=== PATIENT | female | born 1945 | race Caucasian/White ===

== ENCOUNTER 2018-09-26 16:09 | Inpatient (IN) ==
[2018-09-26] MEDS ORDERED: DUONEB (A & A) INH ONE (16:46)
--- NOTE | 2018-09-26 17:21 | PROVIDER DOCUMENTATION ---
HPI-Respiratory General - General Chief Complaint: Shortness of Breath Stated Complaint: DR ETIENNE REF Time Seen by Provider: 09/26/18 16:36 Allergies/Adverse Reactions: Patient Allergies Allergy/AdvReac Type Severity Reaction Status Date / Time aspirin AdvReac Mild ABDOMINAL Verified 12/06/14 09:29 PAIN Home Medications: Home Medication List Medication Instructions Recorded Confirmed Last Taken Type Alprazolam [Xanax] 1 mg PO BID 08/23/13 02/24/16 08/22/13 07:00 History Citalopram [Celexa] 20 mg PO DAILY 08/23/13 02/27/16 08/22/13 07:00 History Esomeprazole [Nexium] 40 mg PO DAILY 08/23/13 02/27/16 08/22/13 07:00 History Ezetimibe [Zetia] 10 mg PO DAILY 08/23/13 02/27/16 08/22/13 07:00 History Oxycodone/APAP 10 mg/325 mg 1 each PO Q6H 08/23/13 02/27/16 08/23/13 07:00 History [Percocet-10] PRAVAstatin [Pravachol] 20 mg PO QHS 08/23/13 02/27/16 08/21/13 20:00 History Albuterol Sulfate [Albuterol 1 - 2 puff IH 3-4XDAY PRN PRN #1 09/24/13 02/22/16 Unknown Rx Sulfate Hfa] hfa.[email or web address].[email or web address] Aspirin 81 mg PO QHS 09/24/13 02/22/16 Unknown History Furosemide [Lasix] 40 mg PO DAILY #20 tablet 09/24/13 02/22/16 Unknown Rx Hydrochlorothiazide 25 mg PO DAILY 09/24/13 02/22/16 Unknown History Morphine Sulfate [Morphine Sulfate 60 mg PO BID 09/24/13 02/23/16 Unknown History ER] Multivitamin [Multivitamins] 1 each PO DAILY 09/24/13 02/22/16 Unknown History [place]-3 Fatty Acids [Fish Oil] 2,000 mg PO DAILY 09/24/13 02/22/16 Unknown History Doxycycline 100 mg PO BID #10 capsule 02/27/16 Unknown Rx Levofloxacin [Levaquin] 500 mg PO DAILY #7 tablet 02/27/16 Unknown Rx Methylprednisolone [Medrol Dosepak] 4 mg PO DIRECTED #1 package 02/27/16 Unknown Rx - History of Present Illness-Resp Nature of Presenting Problem: 73 y/o female patient with h/o ?emphysema, h/o chronic smoking, presents with c/ o shortness of breath x 2 weeks, getting worse. Severity in ED: reports: severe Onset/Duration: reports: other (2 weeks) Timing: reports: getting worse Cough Quality/Degree: reports: moderate Associated Symptoms: reports: cough, shortness of breath. denies: chest pain/ soreness, fever/chills Similar Symptoms Previously?: Yes Review of Systems - Adult - REVIEW OF SYSTEMS - ADULT Constitutional: reports: no symptoms reported Eyes: reports: no symptoms reported Ears, Nose, Mouth & Throat: reports: no symptoms reported Cardiovascular: reports: no symptoms reported Respiratory: reports: cough, shortness of breath Gastrointestinal: reports: no symptoms reported Genitourinary: reports: no symptoms reported Musculoskeletal: reports: no symptoms reported Integumentary: reports: no symptoms reported Neurological: reports: no symptoms reported Psychiatric: reports: no symptoms reported Endocrine: reports: no symptoms reported Hematologic/Lymphatic: reports: no symptoms reported Allergic/Immunologic: reports: no symptoms reported All Other Systems: Reviewed and Negative Past History - Adult - PAST MEDICAL HISTORY-ADULT Review of Records: reports: Nursing Assessment Review Major Childhood Illnesses: reports: denies history Cardiovascular: reports: HTN, hyperlipidemia Respiratory: reports: COPD, denies history Gastrointestinal: reports: denies history Obstetrical/Gynecological: reports: denies history Genitourinary: reports: denies history Musculoskeletal: reports: chronic pain, intervertebral disc disease Neurological: reports: denies history Endocrine/Immune: reports: denies history Other Conditions: reports: denies history - PRIOR SURGERIES/PROCEDURES Surgical/Procedure History: reports: hysterectomy - PRIOR HOSPITALIZATIONS Prior Hospitalizations: reports: none - IMMUNIZATION STATUS Childhood Immunizations: See Nurse Assessment Flu Vaccine: See Nurse Assessment - FAMILY HISTORY Family History: reviewed, not pertinent - SOCIAL HISTORY Smoking: quit greater than 1 year Physical Exam-General - PHYSICAL EXAM-ADULT Initial Vital Signs Reviewed: Yes - CONSTITUTIONAL General Appearance: moderate distress, obese - EYES Eyes: PERRL/EOMI, pink conjunctivae - HEAD, EARS, NOSE, MOUTH & THROAT HENMT: normocephalic/atraumatic, moist mucous membranes - NECK Neck: full range of motion, supple - RESPIRATORY Respiratory: rhonchi, wheezing, prolonged expiration, increased rate - CARDIOVASCULAR Cardiovascular: normal peripheral pulses - GASTROINTESTINAL (ABDOMEN) Abdominal Exam: normal bowel sounds, non tender, soft - MUSCULOSKELETAL Back Exam: swelling (edema 3+ , non pitting in both lower extremities) - SKIN Integumentary: normal color, normal turgor - NEUROLOGIC Neurologic: grossly normal, no motor/sensory deficits - PSYCHIATRIC Psych/Mental Status: oriented x 3 Progress - PLAN OF CARE/RESULTS Progress/Plan/Lab Results: Vital Signs - 8 hr 09/26/18 16:14 09/26/18 16:38 09/26/18 16:40 Temperature 98.0 F Pulse Rate 80 Respiratory Rate 24 Blood Pressure 136/45 O2 Sat by Pulse Oximetry 76 L 90 L 90 L 09/26/18 16:50 09/26/18 16:58 09/26/18 17:00 Temperature Pulse Rate 97 H Respiratory Rate 24 Blood Pressure O2 Sat by Pulse Oximetry 91 L 92 L 94 L 09/26/18 17:10 09/26/18 17:27 09/26/18 17:30 Temperature Pulse Rate Respiratory Rate Blood Pressure O2 Sat by Pulse Oximetry 90 L 92 L 93 L 09/26/18 17:40 09/26/18 17:50 09/26/18 18:00 Temperature Pulse Rate Respiratory Rate Blood Pressure O2 Sat by Pulse Oximetry 93 L 90 L 91 L 09/26/18 18:10 Temperature Pulse Rate Respiratory Rate Blood Pressure O2 Sat by Pulse Oximetry 93 L 09/26/18 17:45 Influenza Screen - Final Nasopharyngeal Laboratory Results - last 24 hr 09/26/18 09/26/18 09/26/18 17:45 17:45 17:45 WBC 15.89 H RBC 4.16 L Hgb 11.7 L Hct 39.2 MCV 94.2 MCH 28.1 MCHC 29.8 L RDW Std Deviation 16.0 H Plt Count 251 MPV 10.0 Immature Gran % (Auto) 0.6 H Neut % (Auto) 81.5 H Lymph % (Auto) 8.0 L Tripp % (Auto) 9.1 Eos % (Auto) 0.6 Baso % (Auto) 0.2 Immature Gran # (Auto) 0.10 H Neut # (Auto) 12.95 H Lymph # (Auto) 1.27 Tripp # (Auto) 1.45 H Eos # (Auto) 0.09 Baso # (Auto) 0.03 Specimen Type Sample Site pH pCO2 pO2 HCO3 Base Excess Oxyhemoglobin ABG O2 Sat (Calculated) ABG O2 Saturation ABG Carboxyhemoglobin ABG Methemoglobin Earl Test A-a O2 Difference Total Hemoglobin Lactate Liter Flow Blood Gas Modality FiO2 % Sodium 140 Potassium 3.8 Chloride 96 L Carbon Dioxide 33 Anion Gap 11 BUN 12 Creatinine 0.7 Estimated GFR/1.73 m2 > 60 BUN/Creatinine Ratio 17 Glucose 206 H Calculated Osmolality 285 Calcium 8.6 L Total Bilirubin 0.42 AST 42 H ALT 39 H Alkaline Phosphatase 106 H Creatine Kinase 171 Troponin T [id number] Pept Total Protein 6.5 Albumin 3.4 L Globulin 3.1 Albumin/Globulin Ratio 1.1 Plasma Lactate 2.1 09/26/18 09/26/18 09/26/18 17:45 17:45 18:05 WBC RBC Hgb Hct MCV MCH MCHC RDW Std Deviation Plt Count MPV Immature Gran % (Auto) Neut % (Auto) Lymph % (Auto) Tripp % (Auto) Eos % (Auto) Baso % (Auto) Immature Gran # (Auto) Neut # (Auto) Lymph # (Auto) Tripp # (Auto) Eos # (Auto) Baso # (Auto) Specimen Type ARTERIAL Sample Site R RADIAL pH 7.33 L pCO2 68 H* pO2 86 HCO3 30.1 H Base Excess 6.8 H Oxyhemoglobin 94.2 L ABG O2 Sat (Calculated) 22.0 ABG O2 Saturation 97.6 ABG Carboxyhemoglobin 2.30 ABG Methemoglobin 1.3 Earl Test YES A-a O2 Difference 143.0 Total Hemoglobin 16.6 Lactate 2.40 H Liter Flow 6.0 Blood Gas Modality CANNULA FiO2 % 44.0 Sodium Potassium Chloride Carbon Dioxide Anion Gap BUN Creatinine Estimated GFR/1.73 m2 BUN/Creatinine Ratio Glucose Calculated Osmolality Calcium Total Bilirubin AST ALT Alkaline Phosphatase Creatine Kinase Troponin T < 0.010 Fas-[id number] Pept 617 H Total Protein Albumin Globulin Albumin/Globulin Ratio Plasma Lactate Orders Category Date Time Status CHEST-2 VIEWS [RAD] Stat Exams 09/26/18 16:34 Completed ABG [RESP] Routine Lab 09/26/18 18:05 Completed BLOOD CULTURE [BLDCUL] Stat Lab 09/26/18 17:45 Results CBC WITH ELECTRONIC DIFF [HEME] Stat Lab 09/26/18 17:45 Completed CK PROFILE [SP CHEM] Stat Lab 09/26/18 17:45 Completed COMPREHENSIVE METABOLIC PANEL [CHEM] Stat Lab 09/26/18 17:45 Completed INFLUENZA SCREEN A/B Stat Lab 09/26/18 17:45 Completed LACTATE, PLASMA [CHEM] Stat Lab 09/26/18 17:45 Completed PRO B-NATRIURETIC PEPTIDE Stat Lab 09/26/18 17:45 Completed TROPONIN T Stat Lab 09/26/18 17:45 Completed URINALYSIS W/POSS RFLX CULT [URINALYSIS] Stat Lab 09/26/18 16:45 Uncollected Albuterol 2.5MG/Ipratrop 0.5MG [Duoneb (A & A)] Med 09/26/18 16:46 Discontinued 3 ml INH NOW ONE Methylprednisolone Sod Succ [Solu-Medrol] Med 09/26/18 19:03 Discontinued 125 mg IV NOW ONE Piperacillin/Tazobactam [Zosyn] 3.375 gm Med 09/26/18 19:04 Discontinued 0.9% Sodium Chloride Inj [Ns] 50 ml IV NOW Aerosol Treatments Routine Oth 09/26/18 16:46 Completed Aerosol Treatments Stat Oth 09/26/18 16:46 Completed Pulse Oximetry Stat Oth 09/26/18 16:34 Completed EKG [EKG] Stat Ther 09/26/18 16:45 Ordered Result Diagrams: 09/26/18 17:45 09/26/18 17:45 - XRAY 1 XRAY Study: Chest Impression: Abnormal ( EXAM: CHEST-2 VIEWS HISTORY: sob TECHNIQUE: Chest two views COMPARISON: 02/22/2016 FINDINGS: The lungs are hyperexpanded. The heart is mildly enlarged. There are increased interstitial markings throughout both lungs. Trace pleural effusions. IMPRESSION: Increased interstitial markings consistent with fibrosis or pulmonary edema Electronically signed by Mark Melendez 09/26/2018 5:39 PM [id number]/26/[id number] Interpreting Physician: Mark Melendez MD Dictated Date/Time: [id number]) - CONSULTS/PCP/HOSPITALIST Notification #1 *Consult/PCP/Hospitalist*: Dr. Kaminski Time Discussed: 20:49 Consult Disposition: Admit Departure - Departure Date of Disposition Decision: 09/26/18 Time of Disposition Decision: 20:50 DIAGNOSIS: COPD exacerbation Acute respiratory failure Qualifiers: Respiratory failure complication: hypoxia and hypercapnia Qualified Code(s): J96.01 - Acute respiratory failure with hypoxia Disposition: ADMITTED INPATIENT 09 Certified Medical Emergency: Emergent Condition: Serious - Critical Care Note This patient required my direct & personal management of CC.: No Attestation - Physician/ NADIA Attestation The physician spent face to face time with patient:: Yes Advanced Practice Provider documentation review:: Supervising physician onsite and consulted in the evaluation and care of this patient. The physician did have a face to face encounter with the patient.
--- NOTE | 2018-09-26 17:42 | Diag Imaging Result Doc PS360 ---
EXAM: CHEST-2 VIEWS HISTORY: sob TECHNIQUE: Chest two views COMPARISON: 02/22/2016 FINDINGS: The lungs are hyperexpanded. The heart is mildly enlarged. There are increased interstitial markings throughout both lungs. Trace pleural effusions. IMPRESSION: Increased interstitial markings consistent with fibrosis or pulmonary edema Electronically signed by Mark Melendez 09/26/2018 5:39 PM
[2018-09-26 18:11] LABS: BASO# 0.03 X1000 (0.0-0.2); BASO% 0.2 % (0.0-0.8); EOS# 0.09 X1000 (0.0-0.7); EOS% 0.6 % (0.0-10.0); HEMATOCRIT 39.2 % (37.0-47.0); HEMOGLOBIN 11.7 g/dL (12.0-16.0); IMM GRAN% 0.6 % (0.0-0.5); LYMPH# 1.27 X1000 (1.2-3.4); MCH 28.1 PG (27-31); MCHC 29.8 g/dL (33-37); MCV 94.2 FL (81-99); MONO# 1.45 X1000 (0.11-0.59); MONO% 9.1 % (1.7-9.3); NEUT# 12.95 X1000 (1.4-6.5); NEUT% 81.5 % (42.2-75.2); PLT 251 X1000 (130-400); RBC 4.16 XMIL (4.2-5.4); WBC 15.89 X1000 (4.8-10.8)
[2018-09-26 18:11] LABS: ALLEN TEST YES; BE 6.8 mmoll (-3.0-3.0); BLOOD TYPE ARTERIAL; HCO3-(ACT) 30.1 mmoll (20.0-26.0); METHB 1.3 % (0.0-1.5); O2HB 94.2 % (95.0-99.0); PO2(98.6) 86 mmHg (60-100); SAMPLE BLOOD; SAO2 97.6 % (95.0-100.0); THB 16.6 g/dL (11.5-17.4); pH(98.6) 7.33 (7.35-7.45)
[2018-09-26 18:12] LABS: MODALITY CANNULA; PCO2(98.6) 68 mmHg (35-45)
[2018-09-26 18:40] LABS: AGAP 11; ALB/GLOB RATIO 1.1; ALBUMIN 3.4 g/dL (3.5-5.0); ALKALINE PHOSPHATASE 106 U/L (32-104); BUN 12 mg/dL (8-22); CALCIUM 8.6 mg/dL (8.8-10.2); CHLORIDE 96 mmol/L (98-107); CK PROFILE 171 U/L (24-173); COSMO 285; CREATININE 0.7 mg/dL (0.5-0.9); ESTIMATED GFR > 60; GLUCOSE 206 mg/dL (70-104); GOT 42 U/L (10-30); GPT 39 U/L (10-36); POTASSIUM 3.8 mmol/L (3.5-5.1); SODIUM 140 mmol/L (136-145); TCO2 33 mmol/L (25-35); TOTAL BILIRUBIN 0.42 mg/dL (0.20-1.00); TOTAL PROTEIN 6.5 g/dL (6.3-8.3)
[2018-09-26] MEDS ORDERED: SOLU-MEDROL IV ONE (19:03)
[2018-09-26] MEDS ORDERED: ZOSYN 3.375 GM in NS 50 ML IV ONE (19:04)
--- NOTE | 2018-09-27 03:52 | HISTORY AND PHYSICAL ---
PRIMARY CARE PHYSICIAN: Dr. Alexander. CHIEF COMPLAINT: Shortness of breath and cough times several days. HISTORY OF PRESENT ILLNESS: A 73-year-old female with a history of COPD, diabetes mellitus type 2, hypertension, hyperlipidemia and chronic low back pain, who had presented to emergency department with several days history of worsening shortness of breath and cough. The patient states that she was having difficulty breathing and subsequently had come to the emergency department. She was evaluated. She was found to be in some mild distress. She was given nebs treatment and Solu-Medrol and she had some improvement. Due to presenting symptoms, it was thought that she would need admission for further management. At the time of my examination, she had denied any headache, fever, chills, chest pain, hemoptysis, melena, but complained of cough and shortness of breath. PAST MEDICAL HISTORY: Includes COPD, diabetes mellitus type 2, hyperlipidemia, chronic back pain. PAST SURGICAL HISTORY: Hysterectomy. ALLERGIES: Aspirin. CURRENT MEDICATIONS: Include albuterol inhaler 2 puffs q.i.d., Xanax 1 mg p.o. b.i.d., citalopram 20 mg p.o. daily, Nexium 40 mg p.o. daily, Zetia 10 mg p.o. daily, Lasix 40 mg p.o. daily, hydrochlorothiazide 25 mg p.o. daily, methylprednisone as directed, morphine sulfate 60 mg p.o. b.i.d., Percocet 10 one p.o. q.6, pravastatin 20 mg p.o. q.6 hours. SOCIAL HISTORY: She is a former smoker. Admits to social alcohol use. Denies any illicit drug use. FAMILY HISTORY: Positive for coronary artery disease in father. REVIEW OF SYSTEMS: Fourteen point review of systems as listed in HPI. Other systems negative. PHYSICAL EXAMINATION: GENERAL: Cooperative, friendly female. She is resting more comfortably now. VITAL SIGNS: Temperature 98.0 degrees, pulse 80, respirations 24, blood pressure 136/45. HEENT: Atraumatic, normocephalic. Extraocular movements intact. PERRLA. NECK: No masses. CHEST: Rhonchi. CARDIOVASCULAR: Regular rate and rhythm. ABDOMEN: Soft, positive bowel sounds. EXTREMITIES: +1 edema. NEUROLOGIC: She is awake, alert, oriented x3. GENITOURINARY: No bladder distention. SKIN: Warm. LABORATORIES AND STUDIES: WBCs 15.89, hemoglobin 11.7, hematocrit 39.2, platelets 251,000. Sodium 140, potassium 3.8, chloride 96, CO2 is 33, BUN is 12, creatinine 0.7, glucose is 206. Chest x-ray shows increased interstitial markings with fibrosis or pulmonary edema. ASSESSMENT: A 73-year-old female with a history of chronic obstructive pulmonary disease, diabetes mellitus type 2, hyperlipidemia, chronic low back pain, who had presented to the emergency department with several days history of worsening shortness of breath. She was evaluated in the emergency department. She was found to be in exacerbation of her COPD. Subsequently, she will need admission for further management. 1. Acute chronic obstructive pulmonary disease exacerbation. 2. Diabetes mellitus type 2. 3. Hyperlipidemia. 4. Chronic low back pain. PLAN: 1. We will admit patient to medical floor with telemetry. 2. Continue with DuoNebs, IV Solu-Medrol, IV antibiotics. 3. Monitor blood glucose closely and put patient on sliding scale insulin regimen. 4. We will start other home medications. 5. Put patient on DVT prophylaxis with SCD. 6. We will continue to follow, and reassess and make further recommendation based on patient's clinical course. cc: Scott Kaminski MD
[2018-09-27 05:46] LABS: URINE SOURCE CLEAN CATCH
[2018-09-27 05:49] LABS: BILIRUBIN URINE NEGATIVE (NEGATIVE); BLOOD URINE NEGATIVE (NEGATIVE); COLOR YELLOW; GLUCOSE URINE NEGATIVE (NEGATIVE); KETONE URINE NEGATIVE (NEGATIVE); LEUKOCYTES URINE SMALL (NEGATIVE); NITRITE URINE NEGATIVE (NEGATIVE); PROTEIN URINE 30 mg/dL (NEGATIVE); SP GRAVITY URINE 1.023; TURBIDITY URINE CLEAR (CLEAR); UROBILINOGEN URINE 2 mg/dL (NORMAL)
[2018-09-27 05:51] LABS: UR EPITHELIAL CELLS <10 /HPF (<10); URINE BACTERIA NEGATIVE /HPF; URINE RBC <10 /HPF (<10)
[2018-09-27] MEDS: LEVAQUIN 500 MG/D5W 500 MG/100 ML IVPB IV SCH (05:57)
[2018-09-27] MEDS ORDERED: ZOFRAN IV PRN (05:57)
[2018-09-27] MEDS: LASIX IV SCH ×2 (06:25→17:32)
[2018-09-27] MEDS: SOLU-MEDROL IV SCH ×3 (06:32→21:26)
[2018-09-27] MEDS: HUMULIN R SUBQ SCH ×4 (06:39→21:26)
[2018-09-27] MEDS: DUONEB (A & A) INH SCH ×5 (08:35→23:53)
[2018-09-27 08:50] LABS: BASO# 0.03 X1000 (0.0-0.2); BASO% 0.2 % (0.0-0.8); HEMATOCRIT 41.5 % (37.0-47.0); HEMOGLOBIN 12.2 g/dL (12.0-16.0); IMM GRAN# 0.12 X1000 (0.0-0.04); IMM GRAN% 0.8 % (0.0-0.5); LYMPH# 0.99 X1000 (1.2-3.4); LYMPH% 6.7 % (20.5-51.1); MCH 27.9 PG (27-31); MCHC 29.4 g/dL (33-37); MONO# 0.41 X1000 (0.11-0.59); MONO% 2.8 % (1.7-9.3); MPV 9.8 FL (7.4-10.4); NEUT# 13.16 X1000 (1.4-6.5); NEUT% 89.5 % (42.2-75.2); PLT 283 X1000 (130-400); RBC 4.37 XMIL (4.2-5.4); WBC 14.71 X1000 (4.8-10.8)
[2018-09-27 09:11] LABS: BANDS 4 % (0-1); LYMPHS 4 % (21-51); MONO 2 % (1-9); SEGS 90 % (42-75)
[2018-09-27 09:20] LABS: AGAP 15; BUN 13 mg/dL (8-22); CHLORIDE 96 mmol/L (98-107); COSMO 288; CREATININE 0.7 mg/dL (0.5-0.9); ESTIMATED GFR > 60; GLUCOSE 178 mg/dL (70-104); POTASSIUM 4.3 mmol/L (3.5-5.1); SODIUM 142 mmol/L (136-145); TCO2 31 mmol/L (25-35)
[2018-09-27] MEDS ORDERED: TYLENOL PO PRN (15:27)
--- NOTE | 2018-09-27 16:23 | PROGRESS NOTE ---
DATE: 09/27/2018 REASON FOR VISIT: Yesterday she presented. She is a patient of Dr. Leslie Landry and followed by Dr. Alexander as well, who came in with shortness of breath and cough for several days. OBJECTIVE: The patient is a 73-year-old female with a history of COPD, diabetes mellitus type 2, hypertension, hyperlipidemia, chronic lower back pain, who presented to the emergency department with a several day history of worsening shortness of breath and cough. The patient states that she was having difficulty breathing and subsequently had come to the emergency department. She was found to have mild distress, she was given nebulized bronchodilators and started on Solu- Medrol, and she had some improvement and so we plan to admit her to make sure that there is continued improvement. PAST MEDICAL HISTORY: COPD, diabetes mellitus type 2, hyperlipidemia, chronic back pain. PAST SURGICAL HISTORY: Hysterectomy. OBJECTIVE: General: On exam today she says she is breathing much better. Vital Signs: Remains afebrile. Temperature 98.1 degrees, pulse 70, respirations 18, blood pressure was 114/46. HEENT: Pupils are equal and round. Lungs: Clear in all lung atkins. Cardiovascular: Regular rhythm and rate without murmur or S3. Abdomen: Soft. Skin: Warm and dry. LABORATORIES: Urine output is 480 mL. ASSESSMENT AND PLAN: 1. [id number] obstructive pulmonary disease exacerbation. We will continue Solu-Medrol, DuoNeb and empiric antibiotics for bronchitic organisms. 2. Diabetes mellitus type 2. Follow pattern sugars. 3. Hyperlipidemia. 4. Chronic lower back pain. She is much better. 5. Shortness of breathing status this morning. She is on deep venous thrombosis prophylaxis with sequential compression devices. 6. Review of her orders. Getting Levaquin 500 mg intravenous every 24 hours, methylprednisone 60 mg intravenous every 8 hours. She is getting Zosyn 3.375 g, she got just 1 dose of that though in the emergency room. 7. Review of her x-ray from yesterday, increased interstitial markings consistent with fibrosis or pulmonary edema. cc: Earl Kaur MD
[2018-09-27] MEDS: ATIVAN IV PRN (16:35)
[2018-09-28] MEDS: DUONEB (A & A) INH SCH ×2 (03:52→07:35)
[2018-09-28] MEDS: SOLU-MEDROL IV SCH (05:29)
[2018-09-28] MEDS: LEVAQUIN 500 MG/D5W 500 MG/100 ML IVPB IV SCH (05:29)
[2018-09-28] MEDS: LASIX IV SCH (05:30)
[2018-09-28] MEDS: ATIVAN IV PRN (05:43)
--- NOTE | 2018-09-28 07:21 | Diag Imaging Result Doc PS360 ---
EXAM: CHEST-PORTABLE HISTORY: copd TECHNIQUE: Portable chest single view COMPARISON: 09/26/2018 FINDINGS: The lungs are well expanded. There are increased interstitial markings throughout both lungs with mild cardiomegaly. Pulmonary edema is slightly more prominent on the current exam. There may be small pleural effusions as well. IMPRESSION: Mild interval worsening. Electronically signed by Mark Melendez 09/28/2018 7:19 AM
[2018-09-28] MEDS: HUMULIN R SUBQ SCH (07:59)
[2018-09-28 09:52] VITALS: BP 140/64
--- NOTE | 2018-09-28 11:07 | DISCHARGE SUMMARY ---
ADMISSION DATE: 09/26/2018 DISCHARGE DATE: 09/28/2018 HOSPITAL COURSE: She is followed by Dr. Leslie Landry. She came in with shortness of breath that she has had for several days, history of COPD, diabetes mellitus type 2, hypertension, hyperlipidemia, chronic lower back pain. She presented to the emergency department with several- day worsening shortness of breath and cough. The patient states having difficulty breathing. Subsequently came to the emergency department, found to have some mild distress, and given some nebulized bronchodilators Solu-Medrol with some improvement. She was admitted to the hospital on further bronchodilators and she showed marked improvement. Was asking to go home on 09/28/2016. DISCHARGE DIAGNOSES: 1. Acute on chronic obstructive pulmonary disease, exacerbation of chronic obstructive pulmonary disease with some bronchospasm and some bronchitis. 2. Diabetes mellitus type 2. 3. Hyperlipidemia. 4. Chronic lower back pain. DISCHARGE DISPOSITION: So, felt she was ready go home. We will discharge her home on her home medications. Continue her O2. She has albuterol sulfa HFA 1 to 2 puffs q. 3 hours p.r.n., Xanax 1 mg b.i.d., aspirin 81 mg at bedtime, Celexa 20 mg a day. She will finish out her doxycycline 100 mg b.i.d.,, Nexium 40 mg a day, Zetia 10 mg a day, Lasix 40 mg daily, hydrochlorothiazide 25 mg a day. We will stop her Levaquin. Methylprednisone Dose-Paks she can finish out. Morphine sulfate ER she has at home, morphine sulfate ER 60 mg b.i.d., multivitamin daily, [place]-3 fatty acid 2000 mg p.o. daily. I think she takes Percocet 10s one q. 6 hours and Pravachol 20 mg at bedtime. cc: Earl Kaur MD
== END 2018-09-28 12:14 | disposition home health service (06) | DRG 191 ==
LOC: ED 16:09 → SUATTDRO 22:56 → EDIPHOLD 22:56 → 3N 09-27 07:52
PROVIDERS: ATTEND Emergency Medicine
CPT/HCPCS: 71010; 71020; 71045; 71046; 80048; 80053; 81001; 82550; 82805; 82948; 83605; 83880; 84484; 85025; 87040; 87088; 87275; 87276; 87804; 93005; 94640; 94761; 94762; 96365; 96375; 96376; 99285; A9270; J1940; J1956; J2060; J2543; J2930; XXXXX

== ENCOUNTER 2018-10-18 18:27 | Inpatient (IN) ==
--- NOTE | 2018-10-18 19:45 | Diag Imaging Result Doc PS360 ---
CHEST-2 VIEWS - 10/18/2018 INDICATION: diff breathing COMPARISON: 09/28/2018 FINDINGS: There are ill-defined interstitial infiltrates in both lung bases and in the left midlung. This is however much improved compared to the prior exam. Heart size and pulmonary vascularity is top normal. No pneumothorax or pleural effusion. IMPRESSION: Indeterminate, ill-defined infiltrates in the left midlung and both lung bases. Electronically signed by Lee Valles 10/18/2018 7:42 PM
[2018-10-18] MEDS ORDERED: ROCEPHIN 1 GM in NS 50 ML IV ONE (19:49)
[2018-10-18 20:43] LABS: BASO# 0.04 X1000 (0.0-0.2); BASO% 0.3 % (0.0-0.8); EOS# 0.08 X1000 (0.0-0.7); EOS% 0.6 % (0.0-10.0); HEMATOCRIT 45.3 % (37.0-47.0); HEMOGLOBIN 14.3 g/dL (12.0-16.0); IMM GRAN# 0.05 X1000 (0.0-0.04); IMM GRAN% 0.4 % (0.0-0.5); LYMPH# 1.73 X1000 (1.2-3.4); LYMPH% 12.2 % (20.5-51.1); MCH 28.1 PG (27-31); MCHC 31.6 g/dL (33-37); MONO% 8.4 % (1.7-9.3); MPV 10.3 FL (7.4-10.4); NEUT# 11.13 X1000 (1.4-6.5); NEUT% 78.1 % (42.2-75.2); PLT 298 X1000 (130-400); RBC 5.09 XMIL (4.2-5.4); RDW 15.4 % (11.5-14.5); WBC 14.23 X1000 (4.8-10.8)
[2018-10-18 20:52] LABS: AGAP 12; BUN 9 mg/dL (8-22); CALCIUM 9.1 mg/dL (8.8-10.2); CHLORIDE 96 mmol/L (98-107); CK PROFILE 77 U/L (24-173); COSMO 275; CREATININE 0.8 mg/dL (0.5-0.9); ESTIMATED GFR > 60; GLUCOSE 179 mg/dL (70-104); POTASSIUM 3.7 mmol/L (3.5-5.1); SODIUM 136 mmol/L (136-145); TCO2 28 mmol/L (25-35)
[2018-10-18] MEDS ORDERED: ZITHROMAX 500 MG/NS 500 MG/250 ML IVPB IV ONE (21:34)
[2018-10-18] MEDS ORDERED: DUONEB (A & A) INH ONE (21:34)
--- NOTE | 2018-10-18 21:37 | PROVIDER DOCUMENTATION ---
This chart was entered by Joselin Schuster Scribe, acting as scribe for Carlos Pereira MD. HPI-General Adult - General Chief Complaint: Flu Symptoms Stated Complaint: SOB, CONGESTED, HEADACHE Time Seen by Provider: 10/18/18 19:49 Source: patient Allergies/Adverse Reactions: Patient Allergies Allergy/AdvReac Type Severity Reaction Status Date / Time aspirin AdvReac Mild ABDOMINAL Verified 12/06/14 09:29 PAIN Home Medications: Home Medication List Medication Instructions Recorded Confirmed Last Taken Type Alprazolam [Xanax] 1 mg PO BID 08/23/13 02/24/16 08/22/13 07:00 History Citalopram [Celexa] 20 mg PO DAILY 08/23/13 02/27/16 08/22/13 07:00 History Esomeprazole [Nexium] 40 mg PO DAILY 08/23/13 02/27/16 08/22/13 07:00 History Ezetimibe [Zetia] 10 mg PO DAILY 08/23/13 02/27/16 08/22/13 07:00 History Oxycodone/APAP 10 mg/325 mg 1 each PO Q6H 08/23/13 02/27/16 08/23/13 07:00 History [Percocet-10] PRAVAstatin [Pravachol] 20 mg PO QHS 08/23/13 02/27/16 08/21/13 20:00 History Albuterol Sulfate [Albuterol 1 - 2 puff IH 3-4XDAY PRN PRN #1 09/24/13 02/22/16 Unknown Rx Sulfate Hfa] [email or web address] Aspirin 81 mg PO QHS 09/24/13 02/22/16 Unknown History Furosemide [Lasix] 40 mg PO DAILY #20 tablet 09/24/13 02/22/16 Unknown Rx Hydrochlorothiazide 25 mg PO DAILY 09/24/13 02/22/16 Unknown History Morphine Sulfate [Morphine Sulfate 60 mg PO BID 09/24/13 02/23/16 Unknown History ER] Multivitamin [Multivitamins] 1 each PO DAILY 09/24/13 02/22/16 Unknown History Irma-3 Fatty Acids [Fish Oil] 2,000 mg PO DAILY 09/24/13 02/22/16 Unknown History Doxycycline 100 mg PO BID #10 capsule 02/27/16 Unknown Rx Levofloxacin [Levaquin] 500 mg PO DAILY #7 tablet 02/27/16 Unknown Rx Methylprednisolone [Medrol Dosepak] 4 mg PO DIRECTED #1 package 02/27/16 Unknown Rx - History of Present Illness -Gen Adult Nature of Presenting Problems: 73 yo morbidly obese Wf with history of severe COPD requiring home oxygen who presents w/co worsening sob, produtive cough and slight fever for past 3 days. pt is a former smoker, quit 4 years ago. Location of Pain/Injury: reports: none Pain Radiation: reports: no radiation Onset/Duration: reports: 3 days ago Timing: reports: getting worse Context/Activities at Onset: reports: rest Similar Symptoms Previously?: Yes Recently seen or treated by another doctor?: No Review of Systems - Adult - REVIEW OF SYSTEMS - ADULT Constitutional: reports: see HPI, fever (100.5 ed). denies: chills, fatique Eyes: reports: no symptoms reported Ears, Nose, Mouth & Throat: reports: no symptoms reported Cardiovascular: reports: no symptoms reported Respiratory: reports: see HPI, cough, excessive sputum production (green phlegm) , shortness of breath Gastrointestinal: reports: no symptoms reported Genitourinary: reports: no symptoms reported Musculoskeletal: reports: no symptoms reported Integumentary: reports: no symptoms reported Neurological: reports: no symptoms reported Psychiatric: reports: no symptoms reported Endocrine: reports: no symptoms reported Hematologic/Lymphatic: reports: no symptoms reported Allergic/Immunologic: reports: no symptoms reported All Other Systems: Reviewed and Negative Past History - Adult - PAST MEDICAL HISTORY-ADULT Review of Records: reports: Old Records Reviewed, Nursing Assessment Review, Medications Reviewed, Social history reviewed & non-contributory. Major Childhood Illnesses: reports: history unknown Cardiovascular: reports: HTN, hyperlipidemia Respiratory: reports: asthma, COPD Gastrointestinal: reports: denies history Obstetrical/Gynecological: reports: denies history Genitourinary: reports: denies history Musculoskeletal: reports: chronic pain, intervertebral disc disease Neurological: reports: denies history Endocrine/Immune: reports: Diabetes Other Conditions: reports: denies history - PRIOR SURGERIES/PROCEDURES Surgical/Procedure History: reports: hysterectomy - PRIOR HOSPITALIZATIONS Prior Hospitalizations: reports: none - IMMUNIZATION STATUS Childhood Immunizations: See Nurse Assessment Flu Vaccine: See Nurse Assessment - FAMILY HISTORY Family History: reviewed, not pertinent - SOCIAL HISTORY Smoking: quit greater than 1 year, other (former) Substance Use: alcohol Alcohol Use Frequency: rarely Physical Exam-General - PHYSICAL EXAM-ADULT Initial Vital Signs Reviewed: Yes - CONSTITUTIONAL General Appearance: appears well, alert, mild distress, obese. negative: lethargic, obtunded, combative - EYES Eyes: PERRL/EOMI - HEAD, EARS, NOSE, MOUTH & THROAT HENMT: normocephalic/atraumatic, moist mucous membranes, normal ENT inspection, other (upper and lower dentures). negative: pharyngeal erythema, tonsillar exudate, frontal tenderness, maxillary tenderness - NECK Neck: non-tender, full range of motion, supple, normal inspection - RESPIRATORY Respiratory: chest non-tender, decreased breath sounds, wheezing (expiratory). negative: crackles, rales, rhonchi, dull on percussion, prolonged expiration - CARDIOVASCULAR Cardiovascular: normal peripheral pulses, regular rate, rhythm - GASTROINTESTINAL (ABDOMEN) Abdominal Exam: normal bowel sounds, non tender, soft - LYMPHATIC Lymphatic: no adenopathy - MUSCULOSKELETAL Back Exam: normal inspection, no CVA tenderness, no vertebral tenderness Extremity: normal range of motion, non-tender, normal inspection - SKIN Integumentary: normal color, normal turgor, warm/dry - NEUROLOGIC Neurologic: equipment maint tech II-XII nml as tested, grossly normal, no motor/sensory deficits - PSYCHIATRIC Psych/Mental Status: normal mood/affect, normal thought content, normal thought process, oriented x 3 Progress - PLAN OF CARE/RESULTS Progress/Plan/Lab Results: Vital Signs - 8 hr 10/18/18 18:39 Temperature 100.5 F H Pulse Rate 85 Respiratory Rate 21 Blood Pressure 148/88 O2 Sat by Pulse Oximetry 88 L 10/18/18 18:38 Influenza Screen - Final Nasopharyngeal Orders Category Date Time Status Saline Loc NOW Care 10/18/18 19:50 Active CHEST-2 VIEWS [RAD] Stat Exams 10/18/18 18:44 Completed BASIC METABOLIC PANEL [CHEM] Stat Lab 10/18/18 20:22 Ordered BLOOD CULTURE [BLDCUL] Stat Lab 10/18/18 20:22 Ordered CBC WITH DIFF [HEME] Stat Lab 10/18/18 20:22 Ordered CK PROFILE [SP CHEM] Stat Lab 10/18/18 20:22 Ordered INFLUENZA SCREEN A/B Stat Lab 10/18/18 18:38 Completed PRO B-NATRIURETIC PEPTIDE Stat Lab 10/18/18 20:22 Ordered TROPONIN T Stat Lab 10/18/18 20:22 Ordered CefTRIAXONE [Rocephin] 1 gm Med 10/18/18 19:49 Discontinued 0.9% Sodium Chloride Inj [Ns] 50 ml IV NOW Pulse Oximetry Stat Oth 10/18/18 19:50 Active EKG [EKG] Stat Ther 10/18/18 19:51 Ordered Result Diagrams: 10/18/18 20:15 10/18/18 20:15 - XRAY 1 XRAY: Bilateral (CHEST-2 VIEWS - 10/18/2018 INDICATION: diff breathing COMPARISON: 09/28/2018 FINDINGS: There are ill-defined interstitial infilt rates in both lung bases and in the left midlung. This is however much improved compared to the prior exam. Heart size and pulmonary vascularity is top normal. No pneumothorax or pleural effusion. IMPRESSION: Indeterminate, ill-defined infiltrates in the left midlung and both lung bases. Electronically signed by Lee Valles 10/18/2018 7:42 PM) XRAY Study: Chest Impression: Abnormal - CONSULTS/PCP/HOSPITALIST Notification #1 *Consult/PCP/Hospitalist*: Dr. Muñoz Time Discussed: 22:20 Consult Disposition: Admit Departure - Departure Date of Disposition Decision: 10/18/18 Time of Disposition Decision: 21:36 DIAGNOSIS: Hypoxemia Pneumonia Qualifiers: Pneumonia type: due to unspecified organism Laterality: bilateral Lung location: unspecified part of lung Qualified Code(s): J18.9 - Pneumonia, unspeci fied organism COPD (chronic obstructive pulmonary disease) Qualifiers: COPD type: unspecified COPD Qualified Code(s): J44.9 - Chronic obstructive pulmonary disease, unspecified Disposition: ADMITTED INPATIENT 09 Certified Medical Emergency: Emergent Condition: Stable Referrals and Follow-Ups: Diomedes Alexander DO [Primary Care Provider] - - Critical Care Note This patient required my direct & personal management of CC.: No Attestation - Physician/ NADIA Attestation Patient care was provided by Advanced Practice Provider:: No The physician spent face to face time with patient:: Yes Advanced Practice Provider documentation review:: Supervising physician onsite and consulted in the evaluation and care of this patient. The physician did have a face to face encounter with the patient. This chart was documented by the indicated scribe, (Joselin Schuster, Bill) and accurately reflects the services I performed and decisions made by me, Co Carlos alicea MD, as attested by the provider's signature.
[2018-10-18] MEDS ORDERED: TYLENOL PO ONE (22:38)
[2018-10-19 00:30] LABS: ALLEN TEST YES; BE 3.7 mmoll (-3.0-3.0); BLOOD TYPE ARTERIAL; HCO3-(ACT) 27.7 mmoll (20.0-26.0); O2(CT) 18.4 mL/dL (15.0-23.0); O2HB 92.2 % (95.0-99.0); PCO2(98.6) 49 mmHg (35-45); PO2(98.6) 63 mmHg (60-100); SAMPLE BLOOD; SAO2 95.2 % (95.0-100.0); THB 14.2 g/dL (11.5-17.4); pH(98.6) 7.39 (7.35-7.45)
[2018-10-19 00:31] LABS: MODALITY CANNULA
[2018-10-19] MEDS ORDERED: ZOFRAN IV PRN (01:52)
[2018-10-19] MEDS ORDERED: DUONEB (A & A) INH PRN (01:52)
[2018-10-19] MEDS: SOLU-MEDROL IV SCH ×2 (02:03→13:44)
[2018-10-19] MEDS: ZYVOX 600 MG/D5W 600 MG/300 ML IVPB IV SCH ×2 (02:03→13:44)
[2018-10-19 02:18] LABS: HEMOGLOBIN A1C 6.4 % (4.8-6.0)
[2018-10-19] MEDS: DUONEB (A & A) INH SCH ×4 (03:30→15:31)
[2018-10-19] MEDS: MAXIPIME 2 GM in NS 100 ML IV SCH ×2 (04:24→17:54)
--- NOTE | 2018-10-19 06:04 | PROGRESS NOTE ---
DATE: 10/18/2018 Briefly, this is a 73-year-old female who presents with shortness of breath. She says she just feels sick. Other than that, is about the same. She was here not too long ago with pneumonia, and now she has bilateral infiltrates which are actually improved from previous. She came in with progressive shortness of breath and focal infiltrates comparatively although they are a little less dense than they were less than a month ago. She had still some temperature, her white count 14,000, and she was admitted for pneumonia. On exam, she is breathing okay, but she is definitely requiring more oxygen than she did previously as far as she is up to 5 L. She does have COPD. She reports a history of heart failure, but I do not think her other testing is very consistent with that. Her proBNP was actually negative. Workup in the ER consistent with persistent pneumonia and acute hypoxic respiratory failure. We will continue breathing treatments, empiric antibiotics. Since she was just in the hospital, we will have to treat her with broad-spectrum antibiotics, covering for possibly gram-negative type pneumonia, and continue breathing treatments and follow up. We may need to get a pulmonary opinion and follow closely, especially since she has recurrent disease. This is a [id number] encounter note with Loni Castro. cc: Solo Muñoz MD
[2018-10-19] MEDS: LOVENOX SUBQ SCH (06:23)
[2018-10-19] MEDS: HUMULIN R SUBQ SCH ×4 (06:23→20:45)
--- NOTE | 2018-10-19 06:51 | ED EKG INTERP ---
This chart was entered by Joselin Schuster Scribe, acting as scribe for Carlos Pereira MD. EKG Interpretation - EKG Time of EKG reading by physician:: 20:45 EKG Read and Signed by:: Carlos Pereira EKG Interpretation (*Must complete 3 of following elements*): Abnormal Rate: 81 Rhythm: NSR QRS: LVH (mod voltage criteria for LVH may be normal variant) [place] Interval: normal ST Wave: normal Prior EKG Comparison: no prior EKG Comments: Left anterior fascicular block Attestation - Physician/ NADIA Attestation Patient care was provided by Advanced Practice Provider:: No The physician spent face to face time with patient:: Yes Advanced Practice Provider documentation review:: Supervising physician onsite and consulted in the evaluation and care of this patient. The physician did have a face to face encounter with the patient. This chart was documented by the indicated scribe, (Joselin Schuster Scribe) and accurately reflects the services I performed and decisions made by me, Carlos Pereira MD, as attested by the provider's signature.
[2018-10-19] MEDS ORDERED: HUMALOG SUBQ SCH (07:00)
[2018-10-19 07:04] LABS: BASO# 0.03 X1000 (0.0-0.2); BASO% 0.2 % (0.0-0.8); EOS# 0.02 X1000 (0.0-0.7); EOS% 0.1 % (0.0-10.0); HEMATOCRIT 44.9 % (37.0-47.0); HEMOGLOBIN 14.1 g/dL (12.0-16.0); IMM GRAN# 0.03 X1000 (0.0-0.04); IMM GRAN% 0.2 % (0.0-0.5); LYMPH# 1.37 X1000 (1.2-3.4); MCH 28.1 PG (27-31); MCHC 31.4 g/dL (33-37); MCV 89.6 FL (81-99); MONO# 0.81 X1000 (0.11-0.59); MONO% 5.9 % (1.7-9.3); MPV 10.1 FL (7.4-10.4); NEUT# 11.48 X1000 (1.4-6.5); NEUT% 83.6 % (42.2-75.2); PLT 272 X1000 (130-400); RBC 5.01 XMIL (4.2-5.4); RDW 15.4 % (11.5-14.5); WBC 13.74 X1000 (4.8-10.8)
[2018-10-19 07:20] LABS: AGAP 11; ALBUMIN 3.6 g/dL (3.5-5.0); ALKALINE PHOSPHATASE 92 U/L (32-104); BUN 9 mg/dL (8-22); CALCIUM 9.4 mg/dL (8.8-10.2); CHLORIDE 100 mmol/L (98-107); COSMO 278; CREATININE 0.7 mg/dL (0.5-0.9); ESTIMATED GFR > 60; GLUCOSE 171 mg/dL (70-104); GOT 29 U/L (10-30); GPT 27 U/L (10-36); POTASSIUM 3.9 mmol/L (3.5-5.1); SODIUM 138 mmol/L (136-145); TCO2 27 mmol/L (25-35); TOTAL BILIRUBIN 0.68 mg/dL (0.20-1.00); TOTAL PROTEIN 7.1 g/dL (6.3-8.3)
--- NOTE | 2018-10-19 10:08 | Diag Imaging Result Doc PS360 ---
EXAM: CT THORAX W/CONTRAST 10/19/2018 HISTORY: pneumonia TECHNIQUE: This exam was performed using automated exposure control, adjustment of mA or kV according to patient size, and/or use of iterative reconstruction technique. COMMENT: The current examination is compared with the previous study of 02/22/2016. There are no abnormal fluid collections. There is extensive atherosclerotic change in the thoracic aorta without evidence of dissection or aneurysm. There is extensive coronary calcification. There are prominent mediastinal nodes present in the precarinal and aorticopulmonary window which have actually regressed in size since the previous examination. There has been fusion in the lower cervical spine and there are spondylotic changes in the thoracic spine. This has not changed significantly since the previous study. There are some fibrotic changes present in the inferior portion of the right lower lobe as well as the lingula which were present at the time the previous examination. There may be some mild bronchiectasis which is more conspicuous than on the previous exam. There is ill-defined opacity present in the posterior left upper lobe adjacent to the fissure which is more extensive than on the previous examination. This still may be due to fibrosis however. The extensive tree-in-bud opacities which were present on the previous examination have diminished in number and conspicuity. Some of the nodular opacities present in the left apex which were present previously have resolved. IMPRESSION: Generally there has been improvement in the airspace disease and adenopathy present at the time the previous study of 02/22/2016. There is some increased fibrosis focally in the upper lobes bilaterally which may be related to fibrosis although the possibility of recurrent pneumonia cannot be excluded. Given the overall pattern the possibility of atypical mycobacterial disease should be considered. Electronically signed by Marco Bernard 10/19/2018 10:06 AM
[2018-10-19] MEDS: TYLENOL PO PRN (11:15)
--- NOTE | 2018-10-19 14:04 | HISTORY AND PHYSICAL ---
PRIMARY CARE PROVIDER: Diomedes Alexander DO. CHIEF COMPLAINT: Cough, fever, and shortness of breath. HISTORY OF PRESENT ILLNESS: Ms. Smith is a 73-year-old female who has a past medical history most notable for oxygen-dependent COPD, congestive heart failure, diabetes mellitus, hypertension, hyperlipidemia, and chronic low back pain. She presented to the ER this evening with symptoms of shortness of breath, productive cough, and fever. The patient states that a few days ago she began having some sinus drainage and rhinorrhea. The patient states that then she developed a productive cough with green sputum and she did begin to have worsening shortness of breath. She also reports that she has had fever, body aches, and chills. The patient does wear home oxygen nasal cannula at 3 L. She denies any dizziness, lightheadedness, or headache. She denies any chest pain. She denies any abdominal pain, nausea, vomiting, or diarrhea. She denies any dysuria, urinary frequency, or swelling in her lower extremities. Upon evaluation in the ER, the patient was noted to be slightly hypoxic. She did have a room air oxygen saturation of 88%. The patient normally wears 3 L of oxygen, it is unknown at this time. The patient did arrive with her oxygen tank or if this was an actual room air oxygen saturation or if she was wearing her oxygen at that time. Though since that time, she has been on 5 L nasal cannula and is maintaining oxygen saturations at best at 92. The patient does seem tachypneic and slightly dyspneic though is able to lay back in a reclined position. She is able to speak in full sentences. She did have a wet-sounding cough noted upon examination. She did have crackles noted in the left lung base. She was diminished throughout bilateral lung atkins and did have expiratory wheezing noted. In upper airway, she did have some rhonchi noted as well. On 5 L, just 40% FiO2, blood gases were fairly good, pH was 7.39, pO2 was 63, O2 saturation was 95.2. She did have a pCO2 slightly elevated at 49. Though, she does have a slightly white blood cell count of 14,230, she has had documented fever since her arrival, and chest x-ray did show indeterminate ill-defined infiltrate in the left mid lung and both lung bases. The patient will be admitted for further treatment and evaluation of her pneumonia and COPD. REVIEW OF SYSTEMS: A 14-point review of systems was conducted with the patient and all were negative except for pertinent positives mentioned above in the HPI. PAST MEDICAL HISTORY: 1. COPD for which she is oxygen-dependent with home oxygen nasal cannula at 3 L. 2. Diabetes mellitus type 2. 3. Hyperlipidemia. 4. Hypertension. 5. Chronic low back pain. 6. Congestive heart failure. PAST SURGICAL HISTORY: Hysterectomy. SOCIAL HISTORY: The patient is a former smoker. She did quit smoking 4 years ago, though prior to that, she had smoked since age 10. She did at 1 point smoke up to 3 packs per day. She has occasional social alcohol use. She denied any illicit drug use. She does live alone though is able to perform her activities of daily living without assistance. She does have family that lives in the area. FAMILY HISTORY: Positive for her father having a history of coronary artery disease. ALLERGIES: The patient reports allergies to aspirin. HOME MEDICATIONS: We are awaiting the patient's home medication list to be updated and verified. Once this is done, we will address her home medications. DIAGNOSTIC DATA: White blood cell count is 14,230, hemoglobin 14.3, hematocrit 45.3, platelet count is 298. Sodium 136, potassium 3.7, chloride 96, serum bicarbonate is 28, BUN 9, creatinine 0.8, with a GFR greater than 60, glucose 179. Hemoglobin A1c 6.4. Calcium 9.1. CK 77, troponin less than 0.01. ProBNP is 176. Arterial blood gases were obtained on FiO2 of 40%, pH 7.39, pCO2 49, pO2 63, HCO3 is 27.7, with base excess of 3.7, oxyhemoglobin of 92.2, and O2 saturation of 95.2. EKG shows normal sinus rhythm at a rate of 81, with a QTc of 471. We do not have a recent EKG to compare this to except for one from 2014, though in comparison there does not appear to be any acute changes. Chest x-ray shows indeterminate ill-defined infiltrates in the left mid lung and both lung bases. PHYSICAL EXAMINATION: VITAL SIGNS: Temperature 98, heart rate 74, respirations 20, blood pressure is 131/46. Oxygen saturation is 92% on nasal cannula at 5 L. GENERAL: Ms. Smith is an elderly female. She was resting in the ER stretcher. She was slightly tachypneic and slightly dyspneic upon examination, this was mainly with movement or exertion. She did not appear to be in any acute distress. She was able to speak in full sentences and answer questions appropriately. HEENT: Head is atraumatic, normocephalic. Pupils are equal, round, reactive to light, were 3 mm bilaterally and brisk. Oral mucosa is moist. Oropharynx is clear. NECK: Supple, trachea midline. CARDIOVASCULAR: The patient has S1 and S2 present. There were no murmurs, gallops, or rubs appreciated. PULMONARY: The patient does have symmetrical chest expansion bilaterally, though she did have diminished lung sounds throughout all lung atkins, though did have some crackles noted in the left lung base with expiratory wheezing and rhonchi noted in the upper lung atkins as well. ABDOMEN: Soft, nontender, though does not appear to be distended she does have a protuberant abdomen noted. Bowel sounds are present in all 4 quadrants, were normoactive. EXTREMITIES: No cyanosis or edema noted. Pulse, motor, and sensory were intact in all extremities. Radial pulses and pedal pulses are 2+ bilaterally. INTEGUMENTARY: The patient's skin is pink, warm, and dry. NEUROLOGICAL: The patient is alert and oriented to person, place, time, and situation. There do not appear to be any focal neurological deficits noted. ASSESSMENT AND PLAN: 1. Pneumonia. The patient's chest x-ray did show indeterminate ill-defined infiltrates in the left mid lung and both lung bases. The patient was just recently admitted to the hospital in September for chronic obstructive pulmonary disease exacerbation. Given this, we will cover her for healthcare-associated pneumonia. We have placed her on antibiotics of cefepime and Zyvox. Blood cultures and sputum culture have been obtained. Will continue with aggressive pulmonary toilet with incentive spirometry, frequent cough, turn, and deep breathing, and scheduled DuoNeb treatments. We will monitor her respiratory status closely. We have also placed a CT thorax with contrast in the morning for further evaluation and will await these results and continue to follow. 2. Chronic obstructive pulmonary disease. We will continue with her oxygen supplementation as mentioned above, though this has been increased from her baseline from 3 L to nasal cannula at 5 L at this time. We have placed her on low-dose Solu-Medrol 20 mg IV q.12 hours and scheduled DuoNeb treatments as mentioned. We will continue to follow. 3. Mujff-yu-osjbvre hypoxic and hypercapnic respiratory failure. Though the patient's CO2 level does appear to be at baseline and somewhat improved, she is hypoxic and requiring more oxygen supplementation than her usual. Will continue with treatment as mentioned for number 1 and 2. 4. Hypertension. We are awaiting the patient's home medication list to be verified, though at this time her blood pressure is within normal limits. We will continue to follow and implement antihypertensives as necessary. 5. Diabetes mellitus. We will place the patient on a sliding scale insulin. Will do pattern fingerstick blood sugars. Her hemoglobin A1c was 6.4. She will be on a diabetic diet. 6. Deep venous thrombosis prophylaxis provided with Lovenox 40 mg subcutaneously q.24 hours. The patient has been placed on the Medical floor with telemetry. She will have vital signs q.4 hours with strict intake and output. Will repeat a CBC and CMP in the morning. Further orders and recommendations pending hospital course, diagnostic studies, and physician evaluation. Dictated by MADISON Hooks for Solo Muñoz MD cc: Solo Muñoz MD
[2018-10-19] MEDS ORDERED: XANAX PO ONE (18:07)
--- NOTE | 2018-10-20 00:19 | CONSULTATION ---
DATE OF CONSULTATION: 10/19/2018 REQUESTING PROVIDER: Dr. Endy Muñoz. REASON FOR CONSULTATION: Recurrent pneumonia, hypoxia. HISTORY OF PRESENT ILLNESS: This is a 73-year-old female with a medical history of COPD, borderline diabetes, hyperlipidemia and chronic back pain. She presented to the ER last night with worsening shortness of breath, productive cough and slight fever for past 3 days. Initial workup in the ER revealed acute chronic obstructive pulmonary disease exacerbation. She has been admitted to the medical floor for further evaluation and management. At the time of my examination patient is sitting at the bedside. She appears anxious but she has no acute respiratory distress. She reports that all starts with itchy eyes and runny nose which, per patient, are signs of her allergy. She took Claritin but does not help and later she developed worsening shortness of breath and productive cough with greenish sputum. She states that she has been recommended to follow up with a bilingual counter sales retail and a fire watcher, but she hasn't yet. She reports she has a chronic coughing but most of time nonproductive. She has no nausea, vomiting, chest pain or palpitation. PAST MEDICAL HISTORY: 1. COPD. On Spiriva and nebulizer at home per patient. 2. Borderline diabetes. 3. Hyperlipidemia . 4. Chronic back pain, not on narcotic therapy. 5. Partial hysterectomy. SOCIAL HISTORY: She used to smoke up to 3 packs per day since she was 10-year-old and quit 4 years ago. She is a social drinker but she has no history of illicit drug use. FAMILY HISTORY: Positive for coronary artery disease. ALLERGIES: Aspirin. REVIEW OF SYSTEMS: A 10 point review of systems was conducted and the pertinent was is listed within the HPI otherwise noncontributory. PHYSICAL EXAMINATION: Vital Signs: Temperature 98, blood pressure 136/52, pulse 74, respiratory rate 20, oxygen saturation 94% on nasal cannula at 5. General: Morbidly obese, friendly, cooperative, sitting at the bedside, become anxious as talking, but in no acute distress. HEENT: Atraumatic. Trachea midline. Mucosa pink and slightly dry. Respiratory: Lung expansion equal bilaterally. Auscultation revealed diminished breathing sounds bilateral otherwise clear . Cardiovascular: Regular rate and rhythm without murmur. Gastrointestinal: Normoactive bowel sounds in all 4 quadrants. Soft, distended, obese and nontender. Extremities: Trace pedal edema. No cyanosis, no clubbing. Neurologic: Oriented x3, very talkative. Speech fluent. Follow commands. IMAGING DATA: Chest CT revealed improvement in the airspace disease and adenopathy present at the time the previous study of 02/22/2016. Some increased fibrosis focally in the upper lobes bilaterally which may be related to fibrosis or the possibility of recurrent pneumonia cannot be excluded and the possibility of atypical mycobacterial disease should be considered. LAB DATA: White blood cell 14.74, hemoglobin 14.1, hematocrit 44.9, platelet 272,000, sodium 138, potassium 3.9, chloride 100, carbon dioxide 27, BUN 9, creatinine 0.9, glucose 171. ABG pH 7.39, pCO2 49, PO2 63, HC03 27.7, base excess 3.7 and oxyhemoglobin 92.2. ASSESSMENT: This is a 73-year-old female with a medical history of chronic obstructive pulmonary disease, borderline diabetes, hyperlipidemia, and chronic back pain. She has been admitted to the medical floor with chronic obstructive pulmonary disease exacerbation. 1. Chronic obstructive pulmonary disease exacerbation. 2. Likely chronic hypercapnic respiratory failure. 3. Acute hypoxemic respiratory failure. 4. Morbid obesity PLAN: 1. Continue antibiotics, steroids and bronchodilators. 2. Continue supplemental oxygen as needed. 3. FU with CXR, CBC and BMP; check ABG if indicated. 4. Patient is on Spiriva at home; Recommend discharging patient on a long-acting beta agonist/inhaled corticosteroid combination such as Advair, Symbicort, or Dulera along with Spiriva. 5. I recommend patient to follow up in our office after discharge as she reports she has not seen any bilingual counter sales retail. She likely will benefit from a sleep study, too after discharge. 6. Continue GI and DVT prophylaxis. Thank you for the courtesy of this consult. Dictated by MADISON Barron for Carlos Batista MD cc: MADISON Barron MD [facility]
[2018-10-20] MEDS: DUONEB (A & A) INH SCH ×6 (00:22→21:28)
[2018-10-20] MEDS: ZYVOX 600 MG/D5W 600 MG/300 ML IVPB IV SCH ×2 (03:29→15:29)
[2018-10-20] MEDS: SOLU-MEDROL IV SCH ×2 (03:30→15:29)
[2018-10-20] MEDS: TYLENOL PO PRN (03:39)
[2018-10-20] MEDS: MAXIPIME 2 GM in NS 100 ML IV SCH ×2 (05:33→20:49)
[2018-10-20] MEDS: LOVENOX SUBQ SCH (05:33)
[2018-10-20] MEDS: HUMULIN R SUBQ SCH ×4 (06:22→20:49)
[2018-10-20 07:51] LABS: BASO# 0.03 X1000 (0.0-0.2); BASO% 0.2 % (0.0-0.8); EOS# 0.05 X1000 (0.0-0.7); EOS% 0.4 % (0.0-10.0); HEMATOCRIT 46.5 % (37.0-47.0); HEMOGLOBIN 14.5 g/dL (12.0-16.0); IMM GRAN# 0.05 X1000 (0.0-0.04); IMM GRAN% 0.4 % (0.0-0.5); LYMPH# 1.36 X1000 (1.2-3.4); LYMPH% 10.4 % (20.5-51.1); MCH 27.9 PG (27-31); MCHC 31.2 g/dL (33-37); MCV 89.6 FL (81-99); MONO# 0.53 X1000 (0.11-0.59); MONO% 4.1 % (1.7-9.3); MPV 10.1 FL (7.4-10.4); NEUT# 11.03 X1000 (1.4-6.5); NEUT% 84.5 % (42.2-75.2); PLT 307 X1000 (130-400); RBC 5.19 XMIL (4.2-5.4); WBC 13.05 X1000 (4.8-10.8)
[2018-10-20 08:21] LABS: AGAP 11; BUN 12 mg/dL (8-22); CALCIUM 9.2 mg/dL (8.8-10.2); CHLORIDE 97 mmol/L (98-107); COSMO 274; CREATININE 0.8 mg/dL (0.5-0.9); ESTIMATED GFR > 60; GLUCOSE 182 mg/dL (70-104); SODIUM 135 mmol/L (136-145); TCO2 27 mmol/L (25-35)
[2018-10-20 08:26] LABS: POTASSIUM 4.9 mmol/L (3.5-5.1)
[2018-10-20] MEDS: XANAX PO SCH ×2 (08:36→20:49)
--- NOTE | 2018-10-20 09:02 | Diag Imaging Result Doc PS360 ---
EXAM: CHEST-PORTABLE 10/20/2018 HISTORY: dyspnea TECHNIQUE: AP portable at 0826 COMMENT: The inspiration is less optimal than on 10/18/2018. There is atelectasis versus fibrosis in the mid left lung which has not changed significantly since 10/18/2018 otherwise there has been no significant change. IMPRESSION: Left upper lobe atelectasis. Interstitial fibrosis versus pulmonary edema. Electronically signed by Marco Bernard 10/20/2018 9:00 AM
[2018-10-20] MEDS: NEURONTIN PO SCH ×3 (11:54→20:49)
[2018-10-20] MEDS: NORCO-5 PO PRN ×2 (11:55→20:48)
[2018-10-20] MEDS: BUSPAR PO SCH ×3 (11:55→20:49)
--- NOTE | 2018-10-20 18:05 | PROGRESS NOTE ---
DATE: 10/20/2018 SUBJECTIVE: The patient is resting comfortably in bed. She complains of shortness of breath and back pain. OBJECTIVE: Vital Signs: Temperature 97.8 degrees, blood pressure 124/66, heart rate 77, respirations 20, O2 saturation is 96% on 3 L nasal cannula. General: This is a chronically ill- appearing, elderly female lying in bed, in no acute distress. Heart: S1, S2 normal. Lungs: Coarse breath sounds with rhonchi bilaterally. Abdomen: Positive bowel sounds. Soft, obese, nontender, nondistended. Extremities: No edema. No cyanosis. Neurologic: The patient is hard of hearing, but alert and oriented x3. LABS: White blood cell count 13, hemoglobin 14, hematocrit 46, platelets 307,000. Sodium 135, potassium 4.9, chloride 97, CO2 27, BUN 12, creatinine 0.8, glucose 182. ASSESSMENT AND PLAN: 1. Acute on chronic hypoxemic respiratory failure. Continue treatment for pneumonia. 2. Pneumonia. Continue on Zyvox and cefepime. We will check a procalcitonin level. Continue with bronchodilator therapy. 3. Morbid obesity. Aware. 4. Anxiety disorder. Continue on Xanax. 5. Chronic obstructive pulmonary disease. Continue with bronchodilator therapy, IV steroids, and supplemental oxygen. 6. Chronic back pain. Continue with p.r.n. pain medication. 7. Deep vein thrombosis prophylaxis. Continue on Lovenox. cc: Lauryn Singer MD
[2018-10-20] MEDS: DESYREL PO SCH (20:49)
[2018-10-21] MEDS: DUONEB (A & A) INH SCH ×7 (02:32→23:07)
[2018-10-21] MEDS: ZYVOX 600 MG/D5W 600 MG/300 ML IVPB IV SCH ×2 (02:43→15:37)
[2018-10-21] MEDS: SOLU-MEDROL IV SCH ×2 (02:43→15:34)
[2018-10-21] MEDS: NORCO-5 PO PRN ×3 (02:43→18:41)
[2018-10-21] MEDS: MAXIPIME 2 GM in NS 100 ML IV SCH ×2 (04:54→18:13)
[2018-10-21] MEDS: LOVENOX SUBQ SCH (06:39)
[2018-10-21] MEDS: HUMULIN R SUBQ SCH ×4 (06:40→21:23)
--- NOTE | 2018-10-21 07:28 | Diag Imaging Result Doc PS360 ---
EXAM: CHEST-PORTABLE - 10/21/2018 HISTORY: dyspnea TECHNIQUE: Portable chest COMPARISON: 10/20/2018 FINDINGS: Heart size appears within normal limits. There is stable tortuosity of the thoracic aorta. There has been some decrease in ill-defined mid and lower lung atelectasis and/or infiltrate on the left. There is no pleural effusion or pneumothorax identified. IMPRESSION: Some decrease in atelectasis/infiltrate on the left. Electronically signed by Rene Campo 10/21/2018 7:26 AM
[2018-10-21 08:04] LABS: BASO# 0.03 X1000 (0.0-0.2); BASO% 0.2 % (0.0-0.8); EOS# 0.02 X1000 (0.0-0.7); EOS% 0.1 % (0.0-10.0); HEMATOCRIT 45.3 % (37.0-47.0); IMM GRAN# 0.06 X1000 (0.0-0.04); IMM GRAN% 0.4 % (0.0-0.5); LYMPH# 1.66 X1000 (1.2-3.4); LYMPH% 11.4 % (20.5-51.1); MCH 27.6 PG (27-31); MCHC 30.9 g/dL (33-37); MCV 89.2 FL (81-99); MONO# 0.94 X1000 (0.11-0.59); MONO% 6.4 % (1.7-9.3); MPV 10.4 FL (7.4-10.4); NEUT# 11.88 X1000 (1.4-6.5); NEUT% 81.5 % (42.2-75.2); PLT 321 X1000 (130-400); RBC 5.08 XMIL (4.2-5.4); WBC 14.59 X1000 (4.8-10.8)
[2018-10-21 08:21] LABS: AGAP 11; BUN 18 mg/dL (8-22); CALCIUM 9.4 mg/dL (8.8-10.2); CHLORIDE 99 mmol/L (98-107); COSMO 278; CREATININE 0.7 mg/dL (0.5-0.9); ESTIMATED GFR > 60; GLUCOSE 143 mg/dL (70-104); POTASSIUM 5.1 mmol/L (3.5-5.1); SODIUM 137 mmol/L (136-145); TCO2 27 mmol/L (25-35)
--- NOTE | 2018-10-21 08:44 | EKG Report ---
Test Performed on : 10/18/2018 8:45:55 PM Test Reason : pain Blood Pressure : / mmHG Vent. Rate : 081 BPM Atrial Rate : 081 BPM P-R Int : 180 ms QRS Dur : 110 ms QT Int : 406 ms P-R-T Axes : 056 -63 062 degrees QTc Int : 471 ms Normal sinus rhythm. Left anterior fascicular block Moderate voltage criteria for LVH, may be normal variant Abnormal ECG No previous ECGs available Unconfirmed Result
[2018-10-21] MEDS: BUSPAR PO SCH ×3 (11:53→18:12)
[2018-10-21] MEDS: THERA M PLUS PO SCH (11:53)
[2018-10-21] MEDS: NEURONTIN PO SCH ×3 (11:53→18:12)
[2018-10-21] MEDS: XANAX PO SCH ×2 (11:57→20:46)
--- NOTE | 2018-10-21 12:59 | Diag Imaging Result Doc PS360 ---
EXAM: BA SWALLOW W/VIDEO SPEECH THER 10/21/2018 HISTORY: Possible Aspiration TECHNIQUE: Modified barium swallow, 131 images, 85 mGy, 26 seconds fluoroscopy time. COMMENT: The patient is able swallow various consistencies of barium. There is slight penetration on the first liquid barium swallow. This is not repeated. There is some questionable narrowing at the level of the cricopharyngeus but this is also associated with a bone plate anteriorly at the C4-5 level. There is a diverticulum anteriorly in the mid/lower mid esophagus. There is some slight spasm of the distal esophageal sphincter which resolves almost immediately. IMPRESSION: No evidence of aspiration. 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 Esophageal diverticulum. Electronically signed by Marco Bernard 10/21/2018 12:57 PM
--- NOTE | 2018-10-21 18:10 | PROGRESS NOTE ---
DATE: 10/21/2018 SUBJECTIVE: The patient is resting comfortably in bed. No acute events noted overnight. OBJECTIVE: Vital Signs: Temperature 98.7 degrees, blood pressure 167/70, heart rate 78, respirations 18, O2 saturation is 96% on 3 L nasal cannula. General: This is an elderly female lying in bed, in no acute distress. Heart: S1, S2 normal. Regular rate and rhythm. Lungs: Equal air entry bilaterally. Diminished breath sounds at the bases. Abdomen: Positive bowel sounds. Soft, nontender, nondistended. Extremities: No edema. No cyanosis. Neurologic: The patient is alert and oriented x3. LABS: White blood cell count 14, hemoglobin 14, hematocrit 35, platelets 321,000. Sodium 137, potassium 5.1, chloride 99, CO2 27, BUN 18, creatinine 0.7, glucose 143. ASSESSMENT AND PLAN: 1. Acute on chronic hypoxemic respiratory failure. Continue with the treatment for pneumonia. 2. Pneumonia. Continue on Zyvox and cefepime. The procalcitonin level was pending. Continue with bronchodilator therapy. 3. Possible achalasia. Aware. 4. Morbid obesity. Aware. 5. Esophageal diverticulum. Aware. 6. Chronic obstructive pulmonary disease. Continue with bronchodilator therapy, IV steroids, and supplemental oxygen. 7. Chronic back pain. Continue with p.r.n. pain medication. 8. Deep vein thrombosis prophylaxis. Continue on Lovenox. cc: Lauryn Singer MD
[2018-10-21] MEDS: DESYREL PO SCH (20:46)
[2018-10-22] MEDS: SOLU-MEDROL IV SCH ×2 (02:17→12:54)
[2018-10-22] MEDS: ZYVOX 600 MG/D5W 600 MG/300 ML IVPB IV SCH ×2 (02:17→12:53)
[2018-10-22] MEDS: DUONEB (A & A) INH SCH ×6 (03:33→23:00)
[2018-10-22] MEDS: LOVENOX SUBQ SCH (05:23)
[2018-10-22] MEDS: MAXIPIME 2 GM in NS 100 ML IV SCH ×2 (05:23→17:17)
[2018-10-22] MEDS: HUMULIN R SUBQ SCH ×4 (06:53→22:20)
[2018-10-22 07:57] LABS: HEMOGLOBIN 15.1 g/dL (12.0-16.0); MCH 28.3 PG (27-31); MCHC 31.5 g/dL (33-37); MCV 89.9 FL (81-99); MPV 10.1 FL (7.4-10.4); RBC 5.34 XMIL (4.2-5.4); RDW 15.4 % (11.5-14.5); WBC 10.01 X1000 (4.8-10.8)
[2018-10-22 08:22] LABS: AGAP 11; BUN 19 mg/dL (8-22); CHLORIDE 98 mmol/L (98-107); COSMO 283; CREATININE 0.7 mg/dL (0.5-0.9); ESTIMATED GFR > 60; GLUCOSE 151 mg/dL (70-104); POTASSIUM 4.9 mmol/L (3.5-5.1); SODIUM 139 mmol/L (136-145); TCO2 30 mmol/L (25-35)
[2018-10-22] MEDS: BUSPAR PO SCH ×3 (09:23→17:16)
[2018-10-22] MEDS: XANAX PO SCH ×2 (09:24→21:45)
[2018-10-22] MEDS: THERA M PLUS PO SCH (09:24)
[2018-10-22] MEDS: NEURONTIN PO SCH ×3 (09:24→17:16)
[2018-10-22] MEDS: NORCO-5 PO PRN ×2 (10:48→17:16)
--- NOTE | 2018-10-22 17:56 | PROGRESS NOTE ---
DATE: 10/22/2018 SUBJECTIVE: Patient resting in bed. OBJECTIVE: Vital Signs: As follows: Temperature 98.2, pulse 78, respiratory rate is 25, blood pressure is 164/87. Oxygenation 95%. HEENT: Atraumatic, normocephalic. Cardiovascular: S1, S2. Abdomen: Soft, nontender. No masses. Extremities: Has trace edema in the lower extremities. Central Nervous System: No obvious focal deficit noted. LABS: WBC 10.01, hematocrit 48.0, with a platelet count of 296,000. Sodium is 139, potassium 4.9, chloride is 98, bicarb 30, BUN is 19, creatinine 0.7. ASSESSMENT AND PLAN: 1. Acute on chronic respiratory failure. Treat primary lung pathology. The patient does have pneumonia. Continue antibiotic treatment, specifically Zyvox as well as Cefepime. 2. COPD. Maintain patient on nebulized bronchodilators, as well as steroids. 3. Chronic back pain. Continue to optimize pain control. 4. Morbid obesity. Aware. 5. Esophageal diverticulum. Aware. 6. DVT prophylaxis. Lovenox. cc: Merlin Anguiano MD MTDD
[2018-10-22] MEDS: DESYREL PO SCH (21:45)
[2018-10-22] MEDS: COREG PO SCH (21:45)
[2018-10-23] MEDS: ZYVOX 600 MG/D5W 600 MG/300 ML IVPB IV SCH (02:35)
[2018-10-23] MEDS: SOLU-MEDROL IV SCH (02:35)
[2018-10-23] MEDS: DUONEB (A & A) INH SCH ×3 (03:30→10:34)
[2018-10-23] MEDS: MAXIPIME 2 GM in NS 100 ML IV SCH (06:00)
[2018-10-23] MEDS: LOVENOX SUBQ SCH (06:45)
[2018-10-23] MEDS: HUMULIN R SUBQ SCH ×2 (06:54→11:12)
--- NOTE | 2018-10-23 07:41 | Diag Imaging Result Doc PS360 ---
EXAM: CHEST-1 VIEW INDICATION: SOB TECHNIQUE: One view COMPARISON: 10/21/2018 FINDINGS: Lung volumes are slightly lower. There are increased interstitial markings bilaterally that are essentially stable. No new consolidation is identified. Cardiac silhouette is stable. IMPRESSION: Slightly lower lung volumes. Essentially stable chest, otherwise. Electronically signed by Clayton Schuster 10/23/2018 7:38 AM
[2018-10-23] MEDS ORDERED: BUSPAR PO SCH (09:00)
[2018-10-23] MEDS: XANAX PO SCH (09:12)
[2018-10-23] MEDS: THERA M PLUS PO SCH (09:12)
[2018-10-23] MEDS: COREG PO SCH (09:12)
[2018-10-23] MEDS: NEURONTIN PO SCH (09:12)
[2018-10-23] MEDS: NORCO-5 PO PRN (09:16)
[2018-10-23 11:43] VITALS: BP 133/70
--- NOTE | 2018-10-23 12:44 | DISCHARGE SUMMARY ---
ADMISSION DATE: 10/19/2018 DISCHARGE DATE: PRINCIPAL DIAGNOSIS: Pneumonia. SECONDARY DIAGNOSES: 1. COPD. 2. Hypertension. 3. Diabetes mellitus. 4. Obesity. 5. Anxiety disorder. 6. Esophageal diverticulum. 7. Chronic back pain. DISCHARGE MEDICATIONS: Include the followin. Combivent Respimat 1 puff every 6 hours. 2. Advair 250/50 one puff twice a day. 3. Levaquin 500 mg p.o. daily. 4. Medrol Dosepak to be taken as directed. 5. [place] 5/325 one twice a day. 6. Xanax 1 mg p.o. twice a day. 7. Neurontin 300 mg p.o. 3 times a day. 8. Multivitamin 1 p.o. daily. 9. Buspirone 50 mg p.o. 3 times a day. 10. Ketorolac 10 mg 3 times a day. 11. Loperamide 2 mg every 6 hours as needed. 12. [place] 3 fatty acids 2 caps twice a day. 13. Tizanidine 4 mg p.o. every 6 hours. 14. Trazodone 50 mg at bedtime. 15. Celexa 1 tablet p.o. daily. 16. Lasix 40 mg p.o. daily. 17. Potassium chloride 10 mEq p.o. daily. 18. Spiriva hand inhaler 1 puff inhaled daily. PROCEDURES DONE DURING HOSPITAL STAY: Chest CT 10/19/2018. CONSULTATIONS DURING HOSPITAL STAY: Dr. Carlos Batista MD Pulmonology. HOSPITAL COURSE: Ms. Mariajose Smith is a 73-year-old female who was admitted to the hospital because of cough, fever, and shortness of breath. X-ray of the chest done at the time of presentation showed ill-defined infiltrate in the left mid lung as well as in both lung bases. Chest CT done on 10/19/2018 showed improvement in airspace disease as well as adenopathy present with some increased focal fibrosis focally in the upper lobes bilaterally. The patient was maintained on antibiotics. She does have COPD. She was placed on nebulized bronchodilators as well as steroids . The patient has done fairly well. She is stable. DISCHARGE EXAMINATION: Vital signs: During my evaluation today, her vital signs were as follows, temperature 97.7 degrees, pulse 79, respiratory rate 20, blood pressure 130/70, and oxygen saturation 96%. HEENT: Atraumatic and normocephalic. Cardiovascular: S1, S2. Respiratory: There is evidence of good entry bilaterally. Abdomen: Soft, nontender. No masses felt. Extremities: Trace edema in the lower extremities. PLAN: The patient was discharged home today with home health services. Follow up with primary care physician as well as Dr. Batista hims clerk. She is to take discharge medications as indicated above. cc: Merlin Anguiano MD [facility]
== END 2018-10-23 13:51 | disposition home health service (06) | DRG 193 ==
LOC: ED 18:27 → 3N 10-19 00:08 → SUATTDRO 10-19 00:08
PROVIDERS: ATTEND Internal Medicine
CPT/HCPCS: 71010; 71020; 71045; 71046; 71260; 74230; 80048; 80053; 82550; 82805; 82948; 83036; 83880; 84145; 84484; 85025; 85027; 87040; 87275; 87276; 87804; 92611; 93005; 94640; 94760; 94761; 94799; 96365; 96367; 97162; 97530; 99285; A9270; J0456; J0692; J0696; J1650; J2020; J2405; J2920; Q9967; XXXXX

== ENCOUNTER 2019-02-11 18:19 | Inpatient (IN) ==
[2019-02-11] MEDS ORDERED: SOLU-MEDROL IV ONE (18:51)
[2019-02-11 19:08] LABS: BASO# 0.05 X1000 (0.0-0.2); BASO% 0.4 % (0.0-0.8); EOS# 0.42 X1000 (0.0-0.7); EOS% 3.4 % (0.0-10.0); HEMATOCRIT 43.1 % (37.0-47.0); HEMOGLOBIN 13.9 g/dL (12.0-16.0); IMM GRAN# 0.02 X1000 (0.0-0.04); IMM GRAN% 0.2 % (0.0-0.5); LYMPH# 2.18 X1000 (1.2-3.4); LYMPH% 17.7 % (20.5-51.1); MCH 29.3 PG (27-31); MCHC 32.3 g/dL (33-37); MCV 90.9 FL (81-99); MONO# 1.36 X1000 (0.11-0.59); MONO% 11.1 % (1.7-9.3); MPV 10.7 FL (7.4-10.4); NEUT# 8.26 X1000 (1.4-6.5); NEUT% 67.2 % (42.2-75.2); PLT 244 X1000 (130-400); RBC 4.74 XMIL (4.2-5.4); RDW 15.3 % (11.5-14.5); WBC 12.29 X1000 (4.8-10.8)
[2019-02-11 19:16] LABS: INR 0.91
[2019-02-11 19:17] LABS: PTT 27.8 Seconds (22.3-41.8)
[2019-02-11 19:17] LABS: ALLEN TEST YES; BE -1.1 mmoll (-3.0-3.0); BLOOD TYPE ARTERIAL; HCO3-(ACT) 23.9 mmoll (20.0-26.0); METHB 0.8 % (0.0-1.5); O2(CT) 18.7 mL/dL (15.0-23.0); O2HB 91.7 % (95.0-99.0); PO2(98.6) 68 mmHg (60-100); SAMPLE BLOOD; SAO2 94.9 % (95.0-100.0); THB 14.5 g/dL (11.5-17.4)
[2019-02-11 19:18] LABS: MODALITY CANNULA
[2019-02-11 19:20] LABS: PCO2(98.6) 77 mmHg (35-45); pH(98.6) 7.19 (7.35-7.45)
[2019-02-11 19:24] LABS: ALB/GLOB RATIO 1.4; ALBUMIN 4.1 g/dL (3.5-5.0); CALCIUM 9.5 mg/dL (8.8-10.2); CREATININE 2.9 mg/dL (0.5-0.9); POTASSIUM 5.8 mmol/L (3.5-5.1); TOTAL BILIRUBIN 0.45 mg/dL (0.20-1.00)
[2019-02-11] MEDS ORDERED: NS 1,000 ML IV ONE ×3 (19:34→20:28)
[2019-02-11] MEDS ORDERED: ZEMURON IV ONE (19:49)
[2019-02-11] MEDS ORDERED: AMIDATE IV ONE (19:49)
[2019-02-11 19:52] LABS: CK INDEX 2.1 (0.0-2.5); CK-MB 148.9 ng/mL (0.0-5.0)
[2019-02-11] MEDS ORDERED: DIPRIVAN 1% IV ONE (20:11)
--- NOTE | 2019-02-11 20:43 | Diag Imaging Result Doc PS360 ---
EXAM: CHEST-PORTABLE HISTORY: eg tube placement TECHNIQUE: Chest single view COMPARISON: 10/23/2018 FINDINGS: There is an endotracheal tube in the right mainstem bronchus. A nasogastric tube overlies the esophagus and stomach. Increased interstitial markings representing fibrosis or pulmonary edema. Likely scarring in the left base. IMPRESSION: Endotracheal tube down the right mainstem bronchus. This should be pulled back several centimeters. This report was discussed with Dr. Earl in the emergency room on 02/11/2019 at 8:40 PM and was readback. Electronically signed by Mark Melendez 02/11/2019 8:41 PM
--- NOTE | 2019-02-11 21:03 | Diag Imaging Result Doc PS360 ---
EXAM: CT ABDOMEN/PELVIS W/O CONTRAST HISTORY: abdominal distension TECHNIQUE: CT abdomen and pelvis without contrast COMPARISON: None. FINDINGS: There are dense left lower lobe infiltrates. No calcified gallstones or adjacent inflammation. There is fatty infiltration of the liver. Normal spleen, pancreas, and adrenal glands. No renal stones. No hydronephrosis. Prominent atherosclerosis. No aortic aneurysm. No bowel obstruction. No ascites. There are scattered colonic diverticula. The uterus has been removed. Urinary bladder is distended and is normal. No pelvic mass. There is a large amount of fat within the abdomen and pelvis. IMPRESSION: 1.Left lower lobe pneumonia 2.There is fatty infiltration of the liver 3.Prominent atherosclerosis 4.Hysterectomy This exam was performed using automated exposure control, adjustment of mA or kV according to patient size, and/or use of iterative reconstruction technique. Electronically signed by Mark Melendez 02/11/2019 9:01 PM
--- NOTE | 2019-02-11 21:06 | Diag Imaging Result Doc PS360 ---
EXAM: CT HEAD W/O CONTRAST HISTORY: ams TECHNIQUE: CT head without contrast COMPARISON: None. FINDINGS: No parenchymal hemorrhage. No epidural or subdural hematoma. No subarachnoid hemorrhage. Mild chronic microvascular ischemic changes. No mass identified on this noncontrasted exam. No hydrocephalus. No sinus opacification. IMPRESSION: No hemorrhage. Mild chronic microvascular ischemic changes. This exam was performed using automated exposure control, adjustment of mA or kV according to patient size, and/or use of iterative reconstruction technique. Electronically signed by Mark Melendez 02/11/2019 9:04 PM
[2019-02-11] MEDS: DIPRIVAN 1% 1,000 MG/100 ML BOTTLE IV SCH (21:09)
[2019-02-11] MEDS ORDERED: VANCOMYCIN 1 GM/NS 1 GM/250 ML IVPB IV SCH (21:15)
--- NOTE | 2019-02-11 21:30 | Diag Imaging Result Doc PS360 ---
EXAM: CT THORAX W/O CONTRAST HISTORY: sob rspiratory failure TECHNIQUE: CT chest without contrast COMPARISON: 10/19/2018 FINDINGS: The endotracheal tube is still down the right mainstem bronchus. This should be pulled back several centimeters. There are infiltrates and atelectasis in the left lung and posteriorly in the right base. Borderline mildly prominent heart. Prominent atherosclerosis. There is a nasogastric tube in the esophagus and stomach. There are several calcified mediastinal nodes. IMPRESSION: 1.Endotracheal tube in the right mainstem bronchus. This should be pulled back several centimeters. This report was previously called to the emergency room. 2.Atelectasis and infiltrates in the left lung with a small amount in the right base. This exam was performed using automated exposure control, adjustment of mA or kV according to patient size, and/or use of iterative reconstruction technique. Electronically signed by Mark Melendez 02/11/2019 9:27 PM
[2019-02-11] MEDS: ZOSYN 3.375 GM in NS 50 ML IV SCH (21:31)
--- NOTE | 2019-02-11 22:15 | HISTORY AND PHYSICAL ---
PRIMARY CARE PHYSICIAN: Dr. Alexander. CHIEF COMPLAINT: Found unresponsive. HISTORY OF PRESENTING ILLNESS: A 73-year-old female with a history of multiple medical problems include COPD, CHF, diabetes mellitus type 2, hypertension, hyperlipidemia, who was found by family unconscious. She is brought to the emergency department. She was in respiratory distress and she was rapidly intubated. At time of my examination, there was no family around and most of the history is obtained from ER records and previous records. The patient is currently intubated and on a ventilator. PAST MEDICAL HISTORY: Includes COPD, CHF, diabetes mellitus type 2, hypertension, hyperlipidemia. PAST SURGICAL HISTORY: Hysterectomy. ALLERGIES: Aspirin. CURRENT MEDICATIONS: Xanax 1 mg p.o. b.i.d., BuSpar 15 mg p.o. t.i.d., Celexa 40 mg p.o. daily, clonazepam 0.5 mg p.o. b.i.d., Lasix 40 mg p.o. daily, gabapentin 300 mg p.o. t.i.d., [place] 5 1 p.o. q.6 hours, Toradol 10 mg p.o. t.i.d., trazodone 50 mg p.o. at bedtime. SOCIAL HISTORY: She is a former smoker. History of social alcohol use. No history of illicit drug use. FAMILY HISTORY: Positive for coronary artery disease in father. REVIEW OF SYSTEM: Unable to obtain due to patient intubated. PHYSICAL EXAMINATION: GENERAL: The patient is currently intubated and on a ventilator. VITAL SIGNS: Temperature 98.2 degrees, pulse 85, blood pressure 113/64. HEENT: Atraumatic, normocephalic. NECK: No masses. CHEST: Bibasilar rales. CARDIOVASCULAR: Regular rate and rhythm. ABDOMEN: Soft, distended. EXTREMITIES: +1 edema. NEUROLOGIC: She is currently sedated. : No bladder distention. SKIN: Warm. LABORATORIES AND STUDIES: WBC 12.29, hemoglobin 13.9, hematocrit 43.1, platelets 244,000. Sodium 135, potassium 5.8, chloride 95, CO2 24, BUN is 39, creatinine is 2.9, glucose is 209. Troponin 0.010. Blood gases shows pH of 7.19, pCO2 of 77. CT of the head: No hemorrhage. Mild chronic white microvascular ischemic changes. CT of the chest shows infiltrates in the left lung. ASSESSMENT: This is a 73-year-old female with a history of chronic obstructive pulmonary disease, congestive heart failure, diabetes mellitus type 2, and hypertension, who was found unresponsive. She was brought to the emergency department. She was rapidly intubated and she will require admission to ICU for further management. ASSESSMENT: 1. Altered mental status/unresponsive. 2. Acute respiratory failure. 3. Left lower lobe pneumonia. 4. Acute kidney injury. 5. Chronic obstructive pulmonary disease. 6. Diabetes mellitus type 2. PLAN: 1. We will admit patient to intensive care unit. 2. Continue with neuro checks. 3. Continue with ventilator support. 4. We will check blood cultures. Start patient on IV antibiotics. 5. We will monitor renal function closely. 6. Continue with DuoNeb. 7. We will monitor blood glucose and continue with sliding scale insulin regimen. 8. Put patient on deep vein thrombosis prophylaxis with sequential compression devices. 9. We will continue to follow and reassess and make further recommendation based on patient's clinical course. cc: Scott Kaminski MD MTDD
[2019-02-11 22:18] LABS: UR AMPHETAMINES QUAL NONE DETECTED (NONE DETECT); UR BARBITUATES QUAL NONE DETECTED (NONE DETECT); UR BENZODIAZEPIN QUAL NONE DETECTED (NONE DETECT); UR CANNABINOIDS QUAL NONE DETECTED (NONE DETECT); UR COCAINE QUAL NONE DETECTED (NONE DETECT); UR METHADONE QUAL NONE DETECTED (NONE DETECT); UR OPIATES QUAL NONE DETECTED (NONE DETECT); UR OXYCODONE QUAL NONE DETECTED (NONE DETECT); UR PCP QUAL NONE DETECTED (NONE DETECT)
[2019-02-11 22:29] LABS: ALLEN TEST YES; BLOOD TYPE ARTERIAL; HCO3-(ACT) 22.6 mmoll (20.0-26.0); METHB 1.4 % (0.0-1.5); O2(CT) 18.7 mL/dL (15.0-23.0); O2HB 96.4 % (95.0-99.0); PO2(98.6) 153 mmHg (60-100); SAMPLE BLOOD; SAO2 99.8 % (95.0-100.0); SRATE 14 BPM; THB 13.6 g/dL (11.5-17.4); TVOL 600 mL
[2019-02-11 22:30] LABS: MODALITY VENTILATOR
[2019-02-11 22:32] LABS: PCO2(98.6) 75 mmHg (35-45); pH(98.6) 7.17 (7.35-7.45)
[2019-02-11] MEDS ORDERED: VANCOMYCIN IV PER PHARMACY MISC SCH (22:55)
[2019-02-11] MEDS ORDERED: VANCOMYCIN 1,200 MG in NS 250 ML IV ONE (23:00)
[2019-02-11] MEDS: NS 1,000 ML IV SCH (23:30)
[2019-02-11] MEDS: DUONEB (A & A) INH SCH (23:40)
[2019-02-12] MEDS: DIPRIVAN 1% 1,000 MG/100 ML BOTTLE IV SCH ×8 (01:20→23:17)
[2019-02-12 01:23] LABS: URINE SOURCE CATH
[2019-02-12 01:29] LABS: BILIRUBIN URINE NEGATIVE (NEGATIVE); BLOOD URINE MODERATE (NEGATIVE); COLOR YELLOW; GLUCOSE URINE TRACE mg/dL (NEGATIVE); KETONE URINE NEGATIVE (NEGATIVE); LEUKOCYTES URINE NEGATIVE (NEGATIVE); NITRITE URINE NEGATIVE (NEGATIVE); PH URINE 5.5; PROTEIN URINE TRACE mg/dL (NEGATIVE); SP GRAVITY URINE 1.021; TURBIDITY URINE CLEAR (CLEAR); UROBILINOGEN URINE NORMAL (NORMAL)
[2019-02-12 01:30] LABS: UR EPITHELIAL CELLS <10 /HPF (<10); URINE BACTERIA NEGATIVE /HPF; URINE RBC <10 /HPF (<10); URINE WBC <10 /HPF (<10)
[2019-02-12] MEDS: ZOSYN 3.375 GM in NS 50 ML IV SCH ×4 (02:39→20:31)
[2019-02-12] MEDS: DUONEB (A & A) INH SCH ×6 (03:33→23:36)
[2019-02-12 04:20] LABS: BLOOD TYPE ARTERIAL; SAMPLE BLOOD
[2019-02-12 04:21] LABS: ALLEN TEST YES; BE 0.9 mmoll (-3.0-3.0); HCO3-(ACT) 25.6 mmoll (20.0-26.0); METHB 1.3 % (0.0-1.5); O2(CT) 18.1 mL/dL (15.0-23.0); O2HB 96.4 % (95.0-99.0); PCO2(98.6) 33 mmHg (35-45); PO2(98.6) 93 mmHg (60-100); SAO2 99.3 % (95.0-100.0); SRATE 24 BPM; THB 13.3 g/dL (11.5-17.4); TVOL 600 mL; pH(98.6) 7.47 (7.35-7.45)
[2019-02-12 04:23] LABS: MODALITY VENTILATOR
[2019-02-12 06:26] LABS: BASO# 0.01 X1000 (0.0-0.2); BASO% 0.1 % (0.0-0.8); EOS# 0.03 X1000 (0.0-0.7); EOS% 0.2 % (0.0-10.0); HEMATOCRIT 38.9 % (37.0-47.0); HEMOGLOBIN 12.8 g/dL (12.0-16.0); IMM GRAN# 0.02 X1000 (0.0-0.04); IMM GRAN% 0.2 % (0.0-0.5); LYMPH# 1.07 X1000 (1.2-3.4); LYMPH% 8.3 % (20.5-51.1); MCH 29.5 PG (27-31); MCHC 32.9 g/dL (33-37); MCV 89.6 FL (81-99); MONO# 0.37 X1000 (0.11-0.59); MONO% 2.9 % (1.7-9.3); MPV 11.1 FL (7.4-10.4); NEUT# 11.34 X1000 (1.4-6.5); NEUT% 88.3 % (42.2-75.2); PLT 213 X1000 (130-400); RBC 4.34 XMIL (4.2-5.4); RDW 14.8 % (11.5-14.5); WBC 12.84 X1000 (4.8-10.8)
[2019-02-12 06:43] LABS: CALCIUM 8.7 mg/dL (8.8-10.2); CREATININE 1.8 mg/dL (0.5-0.9); POTASSIUM 4.8 mmol/L (3.5-5.1)
--- NOTE | 2019-02-12 06:51 | EKG Report ---
Test Performed on : 02/11/2019 6:39:28 PM Test Reason : sob Blood Pressure : / mmHG Vent. Rate : 081 BPM Atrial Rate : 081 BPM P-R Int : 180 ms QRS Dur : 106 ms QT Int : 368 ms P-R-T Axes : 052 -60 068 degrees QTc Int : 427 ms Normal sinus rhythm. Left anterior fascicular block Left ventricular hypertrophy with repolarization abnormality Abnormal ECG When compared with ECG of 18-OCT-2018 20:45, No significant change was found Unconfirmed Result
[2019-02-12] MEDS ORDERED: HUMULIN R SUBQ SCH (07:00)
--- NOTE | 2019-02-12 08:06 | Diag Imaging Result Doc PS360 ---
EXAM: CHEST-PORTABLE INDICATION: Vent protocol TECHNIQUE: One view COMPARISON: 02/11/2019 FINDINGS: The ET tube has been retracted several centimeters. The tip now projects over the trachea and above the rene at about the T5-6 level in a more optimal position. The NG tube is stable. There is increasing opacity at both lung bases, more prominent on the left suggesting worsening edema +/- pneumonia. There is pulmonary venous congestion that appears somewhat worse. Cardiac silhouette is stable, otherwise. IMPRESSION: 1.Interval repositioning of the ET tube, which is in a more optimal position. 2.Worsening infiltrates at the lung bases, worse on the left. Electronically signed by Clayton Schuster 02/12/2019 7:16 AM
[2019-02-12 08:10] LABS: SEGS 86 % (42-75)
[2019-02-12 08:11] LABS: BANDS 4 % (0-1); HYPOCHROM 1+; LYMPHS 8 % (21-51); MONO 2 % (1-9)
[2019-02-12] MEDS: NS 1,000 ML IV SCH ×2 (08:25→18:35)
[2019-02-12] MEDS: HUMULIN R SUBQ SCH ×4 (09:26→21:00)
[2019-02-12] MEDS: PEPCID IV SCH ×2 (09:54→20:56)
[2019-02-12] MEDS: SODIUM CHLORIDE 0.9% INJ SCH ×2 (09:54→20:56)
--- NOTE | 2019-02-12 11:12 | PULMONOLOGY CONSULTATION ---
DATE: 02/12/2019 REQUESTING PHYSICIAN: Dr. Scott Kaminski. REASON FOR CONSULTATION: Respiratory failure/ventilator management. HISTORY OF PRESENT ILLNESS: Ms. Smith is a 73-year-old white female with prior tobacco use, COPD, chronic hypoxemic respiratory failure, with multiple medical problems outlined below, who was noted to be feeling poorly by family members yesterday. They checked on her several times, and she became more lethargic during the day, and was brought to the emergency room. Initial arterial blood gas revealed a pH of 7.19, pCO2 of 77, PO2 of 68. The patient was subsequently intubated and initiated on mechanical ventilation. Head CT revealed mild chronic microvascular ischemic changes, but no acute changes. CT scan of the abdomen and pelvis was performed, which revealed a left lower lobe pneumonia with fatty infiltration of the liver. CT scan of the thorax revealed a right mainstem intubation, which has been corrected, along with infiltrates in the left lung and in the right base. PAST MEDICAL HISTORY: 1. COPD with prior tobacco use. 2. Chronic hypoxemic respiratory failure. 3. Morbid obesity. 4. History of esophageal diverticulum noted on barium swallow. 5. Status post hysterectomy. 6. History of neck surgery. 7. Chronic low back pain. 8. Diabetes mellitus. 9. Hypertension. 10. Diagnosis of congestive heart failure. SOCIAL HISTORY: Chart indicates nonsmoker x4 years, but Dr. Liu's note on 02/24/2016 suggest that she was continuing to smoke a pack a day. She has attentive children. REVIEW OF SYSTEMS: Cannot be obtained. PHYSICAL EXAMINATION: General: An obese, white female with a BMI of 46, on mechanical ventilation. Vital Signs: BP 119/62, heart rate 65, respiratory rate 24, oxygen saturation 97%. HEENT: Pupils are equal and reactive. Oropharynx is clear. Neck: Appears supple. Chest: Coarse rhonchi bilaterally. Secretions from the endotracheal tube appear bilious. Cardiac: S1, S2. Abdomen: Obese and soft. Extremities: There is 1+ peripheral edema. IMAGING AND LABORATORY DATA: Chest x-ray this morning reveals bilateral infiltrates, left greater than right. White blood count 12.4, hemoglobin 12.8, platelet count 213,000. Sodium 135, potassium 4.8, chloride 100, bicarbonate 25, BUN 33, creatinine 1.8. Arterial blood gas this morning shows pH 7.47, pCO2 of 33, PO2 of 93. IMPRESSION: A 73-year-old with: 1. Acute hypoxemic respiratory failure. 2. Chronic hypoxemic respiratory failure. 3. Acute hypercapnic respiratory failure. 4. Aspiration pneumonia. 5. Diabetes mellitus. 6. Morbid obesity. 7. Acute renal failure. RECOMMENDATIONS: 1. Continue full ventilatory support. 2. Agree with current antibiotic regimen pending culture results. 3. Await blood culture results. 4. Obtain a sputum culture. 5. Initiate gastric acid suppression. 6. Initiate DVT prophylaxis. 7. Increase sliding scale insulin. 8. Check hemoglobin A1c. 9. Long-term, encourage weight loss. 10. I spoke with the family. Her prognosis is guarded. Critical Care Time: one hour cc: Gordy Frias MD MTDD
--- NOTE | 2019-02-12 12:10 | PROGRESS NOTE ---
DATE: 02/12/2019 INTERVAL HISTORY: Ms. Smith was admitted overnight for acute hypoxic hypercapnic respiratory failure and left lower lobe aspiration pneumonia. She was intubated in the emergency room. Since then, she has had uncomplicated course. SUBJECTIVE: Patient is intubated and not responsive. VITALS: Afebrile with temperature of 99.2 degrees, pulse 68, respiratory rate 18, blood pressure 111/59 and saturating 95% on 70% FiO2. PHYSICAL EXAMINATION: She has a NG tube under suction and mechanical intubation with hooked up with mechanical ventilator. Marrufo catheter. Pupils are bilateral pinpoint likely because of propofol currently not responding. She has decreased air entry with inspiratory crackles left infrascapular region. Otherwise, adequate air entry bilaterally. No wheeze or rhonchi. S1, S2 normal. No murmur, rub, or gallop.Abdomen: Distended. Soft. Nontender. No hepatosplenomegaly. Tympanic to percussion. Lower Extremities: No edema. Neurologic: She is withdrawing to painful stimuli. No lower extremity edema.. Input and output suggests negative 100 mL. LABORATORY: Suggestive of leukocytosis, normocytic anemia, normal platelet count. Currently, mild respiratory alkalosis. Her FiO2 was decreased to 70%. Persistent hyponatremia, which is acceptable range. Resolution of hyperkalemia, improving acute kidney injury, hyperglycemia. MICROBIOLOGY: Blood culture, sputum culture, urine Legionella and streptococcal antigens are pending. Imaging suggests especially left lower lobe pneumonia and worsening infiltrate. ASSESSMENT AND PLAN: 1. Acute encephalopathy and sepsis with acute hypoxic hypercapnic respiratory failure due to left lower lobe likely aspiration pneumonia. Continue intubation, mechanical ventilation as per Pulmonology recommendation. Continue intravenous vancomycin and Zosyn. Follow up blood cultures, sputum culture, urine antigen level. Continue intravenous propofol as needed for sedation. 2. Acute kidney injury likely in the setting of sepsis and acute hypoxic respiratory failure. Continue intravenous fluids. Follow up serial BMP. Continue close monitoring with input and output. 3. Anxiety and chronic pain disorder. On CT scan image, the patient did have significant food particles in the stomach and small intestine with constipation and NG tube is bringing out feculent material. When clinically appropriate, she should be counseled about titrating her anxiety and pain medications now. 4. Anxiety. She has been listed to be taking multiple angiolytic sedative hypnotic medications. The reconciliation is pending. Her current aspiration event would prompt counseling about decreasing this medication at the time of discharge. 5. Others: Continue famotidine for stress ulcer prophylaxis and heparin for DVT prophylaxis. TIME SPENT: More than 30 minutes of critical care time was spent in taking care of this patient. Plan of care discussed with the nursing team. cc: Glen Sanchez MD MTDD
[2019-02-12] MEDS: HEPARIN SUBQ SCH ×2 (12:53→20:30)
[2019-02-12] MEDS: DULCOLAX PR SCH ×2 (17:18→20:32)
[2019-02-12] MEDS: REGLAN IV SCH (17:18)
[2019-02-12] MEDS: MORPHINE IV PRN (18:09)
[2019-02-13] MEDS: REGLAN IV SCH ×2 (00:54→08:30)
[2019-02-13] MEDS: HUMULIN R SUBQ SCH ×6 (01:26→20:27)
[2019-02-13] MEDS: DIPRIVAN 1% 1,000 MG/100 ML BOTTLE IV SCH ×10 (01:26→22:17)
[2019-02-13] MEDS: DUONEB (A & A) INH SCH ×6 (02:55→23:31)
[2019-02-13] MEDS: ZOSYN 3.375 GM in NS 50 ML IV SCH ×4 (03:48→20:28)
[2019-02-13] MEDS: HEPARIN SUBQ SCH ×3 (04:28→20:29)
[2019-02-13 04:34] LABS: ALLEN TEST YES; BE -1.5 mmoll (-3.0-3.0); BLOOD TYPE ARTERIAL; HCO3-(ACT) 23.8 mmoll (20.0-26.0); METHB 0.8 % (0.0-1.5); O2HB 97.5 % (95.0-99.0); PCO2(98.6) 41 mmHg (35-45); PO2(98.6) 149 mmHg (60-100); SAMPLE BLOOD; SAO2 99.6 % (95.0-100.0); SRATE 18 BPM; THB 12.2 g/dL (11.5-17.4); TVOL 600 mL; pH(98.6) 7.37 (7.35-7.45)
[2019-02-13 04:36] LABS: MODALITY VENTILATOR
[2019-02-13] MEDS: MORPHINE IV PRN (04:43)
[2019-02-13 05:34] LABS: HEMATOCRIT 37.8 % (37.0-47.0); HEMOGLOBIN 12.3 g/dL (12.0-16.0); MCH 29.7 PG (27-31); MCHC 32.5 g/dL (33-37); MCV 91.3 FL (81-99); MPV 11.1 FL (7.4-10.4); RBC 4.14 XMIL (4.2-5.4); RDW 15.2 % (11.5-14.5); WBC 13.09 X1000 (4.8-10.8)
[2019-02-13 05:57] LABS: MAGNESIUM 2.3 mg/dL (1.5-2.7); PHOSPHORUS 3.1 mg/dL (2.7-4.5)
[2019-02-13 06:05] LABS: CALCIUM 8.5 mg/dL (8.8-10.2); CREATININE 1.1 mg/dL (0.5-0.9); POTASSIUM 4.7 mmol/L (3.5-5.1); TOTAL BILIRUBIN 0.3 mg/dL (0.20-1.00)
--- NOTE | 2019-02-13 07:02 | Diag Imaging Result Doc PS360 ---
EXAM: CHEST-PORTABLE 02/13/2019 HISTORY: respiratory failure TECHNIQUE: AP portable at 0541 COMMENT: There is an endotracheal tube with its tip at the thoracic inlet and an NG tube which passes below the diaphragm. There is hazy opacity in both lungs particularly in the lower lung atkins and worse on the left than on the right. The pulmonary vascularity is increased and there is cardiomegaly. Compared to 02/12/2019 there has been no appreciable change considering differences in technique. IMPRESSION: Pulmonary edema plus minus pneumonia. Electronically signed by Marco Bernard 02/13/2019 6:59 AM
[2019-02-13] MEDS: CLINIMIX E 4.25%-5% SOLUTION 1,000 ML IV SCH ×2 (07:34→20:41)
--- NOTE | 2019-02-13 07:47 | PROGRESS NOTE ---
DATE: 02/13/2019 SUBJECTIVE: The patient is resting in bed. She is still on mechanical ventilation and sedated. Had a small bowel movement during the night. Will continue with suppositories. Acute kidney injury is better. Hemoglobin A1c is 8. OBJECTIVE: Vital Signs: Temperature 97.8 degrees, pulse 67, respiratory rate 18, blood pressure 136/68, oxygen saturation 97% on mechanical ventilation. HEENT: Head normocephalic. No trauma. PERRLA. Neck: Supple. No JVD. No masses. Central trachea. Chest: Coarse breath sounds bilaterally with rhonchi mostly at the bases, some crackles at the left base as well. Abdomen: Soft, slightly distended. Positive bowel sounds. Extremities: Trace to 1+ edema. No clubbing. No cyanosis. Neurological: The patient is on mechanical ventilation and sedated. LABORATORY DATA: WBC 13, hemoglobin 12.3, hematocrit 37.8, platelets 220,000. Sodium 136, potassium 4.7, chloride 101, bicarbonate 23, BUN 27, creatinine 1.1, glucose 166. Hemoglobin A1c 8. Calcium 8.5, AST 103, ALT 56, alkaline phosphatase 64, albumin 3. ASSESSMENT AND PLAN: 1. Acute on chronic respiratory failure, likely secondary to aspiration pneumonia. Will continue with the same management, breathing treatments and antibiotics. She is on mechanical ventilation. Pulmonary Department on board. 2. Acute hypercapnic respiratory failure. Continue with the same management as above. 3. Aspiration pneumonia, more evident on the left lower lobe. We will continue with broad- spectrum antibiotics. We will monitor this patient closely. Leukocyte count is slightly elevated at 13. 4. Type 2 diabetes. Hemoglobin A1c is 8. We will continue with sliding scale insulin and pattern of blood sugar. 5. History of chronic obstructive pulmonary disease with prior tobacco use. Aware. Continue breathing treatments. She is not wheezing today. 6. Acute renal failure. This is getting better. Adequate urine output. 7. Morbid obesity with a body mass index of 46.8. Aware. 8. History of chronic pain. Aware. I believe she has been on [place] at home. We are going to reconcile the medications today. 9. Hyperlipidemia. Aware. 10. History of congestive heart failure. Her last echocardiogram showed an ejection fraction of 55% to 60%. Probably, she has right-sided heart failure. 11. Anxiety. It looks like she has been taking some medications for anxiety. The reconciliation is pending. We should probably decrease the amount of medications upon discharge. 12. Nutritional status. We will start this patient on Clinimix today. CRITICAL CARE TIME: 35 minutes. cc: Jamie Nixon MD
[2019-02-13] MEDS: SODIUM CHLORIDE 0.9% INJ SCH ×2 (08:30→20:40)
[2019-02-13] MEDS: PEPCID IV SCH ×2 (08:30→20:40)
[2019-02-13] MEDS: DULCOLAX PR SCH ×2 (08:48→20:28)
[2019-02-13] MEDS ORDERED: VANCOMYCIN 1,650 MG in NS 250 ML IV SCH ×2 (10:00→23:00)
[2019-02-13] MEDS: LASIX IV SCH ×3 (11:02→22:19)
--- NOTE | 2019-02-13 12:03 | PULMONOLOGY PROGRESS NOTE ---
DATE: 02/13/2019 SUBJECTIVE: The patient is sedated. She appears comfortable on mechanical ventilation. She is not breathing over the set rate. OBJECTIVE: Vital Signs: The patient has been afebrile for the last 24 hours. Blood pressure 142/66, heart rate 70, respiratory rate 18, oxygen saturation 96%. HEENT: Pupils are equal and reactive. Oropharynx appears clear but endotracheal tube is in place. Neck is supple. Chest reveals prolonged expiratory phase with bilateral rhonchi. Cardiac Examination: S1, S2. Abdomen is obese, with increased tympany. Rare bowel sounds present. Extremities reveal 1+ peripheral edema. Laboratories: Sodium 136, potassium 4.7, chloride 101, bicarbonate 23, BUN 27, creatinine 1.1. Arterial blood gas reveals pH 7.37, pCO2 of 41, PO2 of 149 on 70% FiO2. White blood count 13,000, hemoglobin 12.3, platelet count 220,000. Sputum culture is pending. Chest x-ray reveals bilateral infiltrates with increased vascular markings. IMPRESSION: A 73-year-old with: 1. Acute on chronic hypoxemic respiratory failure. 2. Acute on chronic hypercapnic respiratory failure. 3. Aspiration pneumonia. 4. Diabetes mellitus with marginal glucose control. 5. Morbid obesity. 6. Acute renal failure with improving creatinine. PLAN: 1. Continue ventilatory support. Her oxygen requirements are decreasing. I will decrease her minute ventilation support. 2. Continue current antibiotics. 3. Continue DVT prophylaxis and gastric acid suppression. 4. Agree with initiation of ProcalAmine. NG is currently clamped and if her residuals are low tomorrow, recommend initiation of Glucerna. 5. Attempt diuretic trial given improvement in creatinine and clinical exam consistent with total body fluid overload. 6. Overall prognosis is guarded. TIME SPENT IN CRITICAL CARE MANAGEMENT: Thirty plus minutes. cc: Gordy Frias MD
[2019-02-14] MEDS: DIPRIVAN 1% 1,000 MG/100 ML BOTTLE IV SCH ×10 (00:31→21:51)
[2019-02-14] MEDS: HUMULIN R SUBQ SCH ×6 (01:25→21:16)
[2019-02-14] MEDS: DUONEB (A & A) INH SCH ×6 (03:20→23:09)
[2019-02-14] MEDS: ZOSYN 3.375 GM in NS 50 ML IV SCH ×4 (03:59→21:16)
[2019-02-14] MEDS: HEPARIN SUBQ SCH ×3 (04:25→21:18)
[2019-02-14 04:37] LABS: ALLEN TEST YES; BE 6.6 mmoll (-3.0-3.0); BLOOD TYPE ARTERIAL; METHB 1.3 % (0.0-1.5); O2(CT) 19.6 mL/dL (15.0-23.0); O2HB 95.7 % (95.0-99.0); PCO2(98.6) 47 mmHg (35-45); PO2(98.6) 89 mmHg (60-100); SAMPLE BLOOD; SAO2 98.3 % (95.0-100.0); SRATE 15 BPM; THB 14.5 g/dL (11.5-17.4); TVOL 600 mL; pH(98.6) 7.44 (7.35-7.45)
[2019-02-14 04:39] LABS: MODALITY VENTILATOR
[2019-02-14 06:16] LABS: HEMATOCRIT 42.3 % (37.0-47.0); HEMOGLOBIN 13.7 g/dL (12.0-16.0); MCHC 32.4 g/dL (33-37); MCV 92.8 FL (81-99); RBC 4.56 XMIL (4.2-5.4); RDW 15.4 % (11.5-14.5); WBC 10.81 X1000 (4.8-10.8)
[2019-02-14 06:37] LABS: ALB/GLOB RATIO 0.9; ALBUMIN 3.3 g/dL (3.5-5.0); CALCIUM 8.8 mg/dL (8.8-10.2); POTASSIUM 4.1 mmol/L (3.5-5.1); TOTAL BILIRUBIN 0.42 mg/dL (0.20-1.00)
--- NOTE | 2019-02-14 07:07 | Diag Imaging Result Doc PS360 ---
EXAM: CHEST-PORTABLE 02/14/2019 HISTORY: respiratory failure TECHNIQUE: AP portable at 0539 COMMENT: The lungs are less well-expanded than on 02/13/2019. The right base is clearer however. There is also some improvement in pneumatization of the left lower lobe. IMPRESSION: Improved pulmonary edema and/or pneumonia. Electronically signed by Marco Bernard 02/14/2019 7:05 AM
[2019-02-14] MEDS: ZYVOX 600 MG/D5W 600 MG/300 ML IVPB IV SCH ×2 (07:31→18:36)
--- NOTE | 2019-02-14 07:35 | PROGRESS NOTE ---
DATE: 02/14/2019 SUBJECTIVE: Patient is resting in bed. She is still on mechanical ventilation and sedated. This patient is having bowel movements. We will continue with suppository, acute kidney injury is better. We did a diuretic trial yesterday, and she responded really well. She had a urine output of 9.1 L with a total negative balance of 4.8 L. DIAGNOSTIC: X-ray looks about the same compared with yesterday maybe a little bit more fluid on the left side. OBJECTIVE: Vital Signs: Temperature 98.2, pulse 70, respiratory rate 15, blood pressure 156/80, and oxygen saturation 97% on mechanical ventilation. HEENT: Head normocephalic. No trauma. PERRLA. Neck: Supple. No JVD. No masses. Central trachea. Chest: Coarse breath sounds bilaterally with rhonchi mostly at the bases. Abdomen: Soft, slightly distended. Positive bowel sounds. Extremities: No edema. No clubbing. No cyanosis at the level of the lower extremities, upper extremity with some edema. Neurological: The patient is on mechanical ventilation and sedated. LABORATORY: WBC 10.8, hemoglobin 13.7 hematocrit 42.3, and platelets 204,000. Sodium 138, potassium 4.1, chloride 96, bicarbonate 29, BUN 27, creatinine 1, glucose 175, and calcium 8.8, AST 89, ALT 54, alkaline phosphatase 76, and albumin 3.3. ASSESSMENT AND PLAN: 1. Acute on chronic respiratory failure, likely secondary to aspiration pneumonia. I will continue with the same management. Broad-spectrum antibiotics. I will stop the vancomycin and put her on Zyvox due to her recent acute kidney injury. Now, we have been using Lasix. I will try to decrease nephrotoxicity. 2. Acute hypercapnic respiratory failure. Continue with same management as above. 3. Aspiration pneumonia more evident on the left lower lobe. We will continue with broad spectrum antibiotics. Like I mentioned before, I have stopped the vancomycin and continue with Zyvox. 4. Fluid overload. She had Lasix yesterday. She had a urine output of 9.1 L with a total negative balance of 4.8 L. She seems to be a little bit better compared with yesterday in that regard. 5. Type 2 diabetes. Hemoglobin A1c is 8. We will continue with sliding scale insulin and pattern of blood sugar stable. 6. History of with prior tobacco use, aware. Continue breathing treatment. She has no wheezing today. 7. Acute renal failure. This is getting better. We did a diuretic trial yesterday, and she responded really well. Kidney function about the same. 8. Morbid obesity with a body mass index of 46.8 aware. 9. History of chronic pain aware. 10. Hyperlipidemia. We will monitor for now. 11. History of CHF. Her last echocardiogram showed an ejection fraction of 55 to 60 percent. Probably, she has right-sided heart failure. 12. Anxiety. It looks like she has been taking some medications for anxiety. Probably, we need to decrease the amount of those medications upon discharge. 13. Nutritional status. This patient was started on Clinimix. I have placed a consult for the associate program manager to start Glucerna today. We checked at the bedside the residuals, and it was around 50 to 60 mL. The last time she was checked for residuals was yesterday at 8:00 in the evening. CRITICAL CARE TIME: 40 minutes. cc: Jamie Nixon MD
[2019-02-14] MEDS: DULCOLAX PR SCH ×2 (08:54→21:20)
[2019-02-14] MEDS: PEPCID IV SCH ×2 (08:54→21:16)
[2019-02-14] MEDS: LASIX IV SCH ×2 (10:46→21:50)
[2019-02-14] MEDS ORDERED: VANCOMYCIN 1,650 MG in NS 250 ML IV SCH (11:00)
--- NOTE | 2019-02-14 14:44 | PULMONOLOGY PROGRESS NOTE ---
DATE: 02/14/2019 SUBJECTIVE: The patient is sedate. She does arouse to stimulus. She remains on mechanical ventilation. OBJECTIVE: Vital Signs: The patient has been afebrile for the last 24 hours. Blood pressure 137/73, heart rate 64, respiratory rate 15, oxygen saturation 94% on 45% FiO2. HEENT: Pupils are equal and reactive. Oropharynx appears clear. Neck: Supple. Chest: Reveals prolonged expiratory phase with bilateral crackles. Cardiac exam: S1-S2. Abdomen: Obese and soft with diminished bowel sounds. Extremities: Reveal decreasing edema. LABORATORY DATA: Sodium 138, potassium 4.1, chloride 96, bicarbonate 29, BUN 27, creatinine 1.0. Chest x-ray reveals decreasing basilar infiltrates. Arterial blood gas, pH 7.44, pCO2 of 47, PO2 of 89. Microbiology reveals no new culture data. IMPRESSION: A 73-year-old with 1. Acute on chronic hypoxemic respiratory failure. 2. Acute on chronic hypercapnic respiratory failure. 3. Aspiration pneumonia. 4. Diabetes mellitus. 5. Resolving renal failure. PLAN: 1. Continue ventilatory weaning. 2. Additional diuretics as tolerated. 3. Continue current antibiotic regimen. 4. Continue current tube feeds. 5. Continue gastric acid suppression and DVT prophylaxis. TIME SPENT CRITICAL CARE: 30+ minutes. cc: Gordy Frias MD
[2019-02-15] MEDS: HUMULIN R SUBQ SCH ×6 (00:14→21:39)
[2019-02-15] MEDS: ZOSYN 3.375 GM in NS 50 ML IV SCH ×4 (02:24→21:10)
[2019-02-15] MEDS: DIPRIVAN 1% 1,000 MG/100 ML BOTTLE IV SCH ×5 (02:24→09:24)
[2019-02-15] MEDS: DUONEB (A & A) INH SCH ×6 (03:46→23:41)
[2019-02-15] MEDS: HEPARIN SUBQ SCH ×3 (04:45→21:11)
[2019-02-15 05:03] LABS: ALLEN TEST YES; BE -0.5 mmoll (-3.0-3.0); BLOOD TYPE ARTERIAL; HCO3-(ACT) 24.6 mmoll (20.0-26.0); METHB 0.3 % (0.0-1.5); O2(CT) 15.4 mL/dL (15.0-23.0); O2HB 97.8 % (95.0-99.0); PCO2(98.6) 31 mmHg (35-45); PO2(98.6) 175 mmHg (60-100); SAMPLE BLOOD; SAO2 98.6 % (95.0-100.0); SRATE 10 BPM; THB 10.9 g/dL (11.5-17.4); TVOL 600 mL; pH(98.6) 7.47 (7.35-7.45)
[2019-02-15 05:04] LABS: MODALITY VENTILATOR
[2019-02-15 05:17] LABS: HEMATOCRIT 42.7 % (37.0-47.0); HEMOGLOBIN 13.8 g/dL (12.0-16.0); MCH 29.9 PG (27-31); MCHC 32.3 g/dL (33-37); MCV 92.6 FL (81-99); MPV 11.1 FL (7.4-10.4); RBC 4.61 XMIL (4.2-5.4); RDW 15.3 % (11.5-14.5); WBC 9.74 X1000 (4.8-10.8)
[2019-02-15 05:40] LABS: PHOSPHORUS 4.5 mg/dL (2.7-4.5); PREALBUMIN 19.1 mg/dL (20-40)
[2019-02-15 05:43] LABS: AGAP 14; ALB/GLOB RATIO 0.9; ALBUMIN 3.5 g/dL (3.5-5.0); ALKALINE PHOSPHATASE 75 U/L (32-104); BUN 24 mg/dL (8-22); CALCIUM 8.8 mg/dL (8.8-10.2); CHLORIDE 96 mmol/L (98-107); COSMO 288; CREATININE 0.9 mg/dL (0.5-0.9); ESTIMATED GFR > 60; GLUCOSE 140 mg/dL (70-104); GOT 64 U/L (10-30); GPT 46 U/L (10-36); POTASSIUM 3.7 mmol/L (3.5-5.1); SODIUM 141 mmol/L (136-145); TCO2 31 mmol/L (25-35); TOTAL BILIRUBIN 0.49 mg/dL (0.20-1.00); TOTAL PROTEIN 7.2 g/dL (6.3-8.3)
[2019-02-15] MEDS: ZYVOX 600 MG/D5W 600 MG/300 ML IVPB IV SCH ×2 (06:16→18:18)
--- NOTE | 2019-02-15 07:18 | Diag Imaging Result Doc PS360 ---
EXAM: CHEST-PORTABLE 02/15/2019 HISTORY: respiratory failure TECHNIQUE: AP portable at 0537 COMMENT: There is an endotracheal tube with its tip thoracic inlet. There is an NG tube passing below the diaphragm. There is increasing opacification of the left lower lobe compared to 02/14/2019. The right lung is actually better expanded. IMPRESSION: Left lower lobe pneumonia. Electronically signed by Marco Bernard 02/15/2019 7:16 AM
--- NOTE | 2019-02-15 07:47 | PROGRESS NOTE ---
DATE: 02/15/2019 SUBJECTIVE: Patient is still in bed. She is still on mechanical ventilation and sedated. She has not had a good bowel movement for the past couple days, I believe. I will order an enema for that. Her abdomen is slightly distended and likely she is constipated. CT scan of the abdomen and pelvis showed also constipation. Her residuals were elevated, around 250 mL, so the feeding tube has been stopped. We will start this back again slowly. OBJECTIVE: Vital Signs: Temperature 98.5 degrees, pulse 73, respiratory rate 12, blood pressure 164/84, oxygen saturation is 92 on mechanical ventilation. HEENT: Head normocephalic. No trauma. PERRLA. Neck: Supple. No JVD. No masses. Central trachea. Chest: Coarse breath sounds bilaterally with rhonchi mostly at the bases, especially on the left side. Abdomen: Soft, slightly distended. Positive bowel sounds. Extremities: No edema. No clubbing. No cyanosis. Neurological: The patient is on mechanical ventilation and sedated. LABORATORY: WBC 9.7, hemoglobin 13.8, hematocrit 42.7, platelets 229,000. Sodium 141, potassium 3.7, chloride 96, bicarbonate 31, BUN 24, creatinine 0.9, glucose 140, magnesium 2.1. AST 64, ALT 46, alkaline phosphatase 75. ASSESSMENT AND PLAN: 1. Acute on chronic hypoxemic respiratory failure likely secondary to aspiration pneumonia. I will continue broad-spectrum antibiotics. I will continue with same management. 2. Acute hypercarbic hypercapnic respiratory failure. Continue with same management as above. 3. Aspiration pneumonia more evident on the left lower lobe. WBC is normal today. We will continue broad-spectrum antibiotics. 4. Fluid overload. She has been responding really good to the Lasix trial. So far, we have a negative balance of 8.5 L. 5. Acute renal failure, improving. Creatinine within normal limits. 6. Morbid obesity with a body mass index of 43.3. Aware. 7. History of chronic pain. Aware. 8. Hyperlipidemia. Continue to monitor for now. 9. History of congestive heart failure, probably right-sided. Echocardiogram showed an ejection fraction of 55 to 60 percent. 10. Anxiety. It looks like this patient has been taking some medication for anxiety, probably we need to decrease the amount of those medications upon discharge. 11. Nutritional status. This patient has been having high residuals, we will restart the feeding tube to see how she does, and we will monitor. 12. Constipation. She has been getting suppositories twice a day, but she is not having a good bowel movement. I will ask the nurse to give an enema today. 13. GI prophylaxis with famotidine. 14. Deep venous thrombosis prophylaxis with heparin. CRITICAL CARE TIME: 35 minutes. cc: Jamie Nixon MD
[2019-02-15] MEDS: MIRALAX PO SCH (08:39)
[2019-02-15] MEDS: PEPCID IV SCH ×2 (08:40→21:11)
[2019-02-15] MEDS: DULCOLAX PR SCH ×2 (08:40→21:11)
[2019-02-15] MEDS: LASIX IV SCH ×3 (10:29→21:11)
[2019-02-15 12:05] LABS: ALLEN TEST YES; BE 10.4 mmoll (-3.0-3.0); BLOOD TYPE ARTERIAL; O2(CT) 21.2 mL/dL (15.0-23.0); O2HB 96.2 % (95.0-99.0); PO2(98.6) 100 mmHg (60-100); SAMPLE BLOOD; SAO2 98.6 % (95.0-100.0); THB 15.6 g/dL (11.5-17.4); pH(98.6) 7.46 (7.35-7.45)
[2019-02-15 12:06] LABS: MODALITY VENTILATOR
[2019-02-15 12:07] LABS: PCO2(98.6) 51 mmHg (35-45)
--- NOTE | 2019-02-15 15:21 | PULMONOLOGY PROGRESS NOTE ---
DATE: 02/15/2019 SUBJECTIVE: The patient is arousable. She looks at the examiner. OBJECTIVE: Vital Signs: The patient has been afebrile for the last 24 hours. Blood pressure 120/66, heart rate 74, respiratory rate 14, oxygen saturation 93%. HEENT: Pupils are equal and reactive. Oropharynx appears clear but dry. Neck: Supple. Chest: Reveals coarse rhonchi bilaterally. Cardiac: S1, S2. Abdomen: Obese and soft with mild decrease in bowel sounds. Extremities: Reveal decreasing peripheral edema. IMAGING: Chest x-ray reveals retrocardiac opacification on the left with some clearing on the right. LABORATORY DATA: White blood count 9.7, hemoglobin 13.8, platelet count 229,000. Arterial blood gas reveals a pH 7.47, pCO2 of 31, PO2 of 175. Chemistries: Sodium 141, potassium 3.7, chloride 96, bicarbonate 31, BUN 24, creatinine 0.9. IMPRESSION: A 73-year-old with: 1. Acute on chronic hypoxemic respiratory failure. 2. Acute on chronic hypercapnic respiratory failure. 3. Aspiration pneumonia. 4. Resolving renal failure. 5. Diabetes mellitus. DISCUSSION: A 73-year-old with problems outlined above. She has had a good urine output/diuresis. Her work of breathing has diminished. Her mental status appears to be improving. PLAN: 1. Initiate spontaneous breathing trial. With current evaluation, I suspect that she will be extubated later this morning. 2. Continue current antibiotic regimen. 3. Additional diuretics today as tolerated. 4. Hold tube feeds while she is being weaned for potential extubation. TIME SPENT: Critical care management 30+ minutes. cc: Gordy Frias MD
[2019-02-15] MEDS: SODIUM CHLORIDE 0.9% INJ SCH (21:13)
[2019-02-16] MEDS: HUMULIN R SUBQ SCH ×6 (00:18→21:32)
[2019-02-16] MEDS: DUONEB (A & A) INH SCH ×6 (03:49→23:47)
[2019-02-16] MEDS: ZOSYN 3.375 GM in NS 50 ML IV SCH ×4 (03:53→21:35)
[2019-02-16] MEDS: HEPARIN SUBQ SCH ×3 (04:40→21:34)
[2019-02-16 05:19] LABS: ALLEN TEST YES; BE 10.7 mmoll (-3.0-3.0); BLOOD TYPE ARTERIAL; HCO3-(ACT) 33.2 mmoll (20.0-26.0); METHB 0.5 % (0.0-1.5); O2(CT) 20.8 mL/dL (15.0-23.0); O2HB 96.8 % (95.0-99.0); PO2(98.6) 100 mmHg (60-100); SAMPLE BLOOD; SAO2 99.7 % (95.0-100.0); THB 15.2 g/dL (11.5-17.4); pH(98.6) 7.39 (7.35-7.45)
[2019-02-16 05:20] LABS: MODALITY BI PAP; PCO2(98.6) 64 mmHg (35-45)
[2019-02-16 05:57] LABS: HEMATOCRIT 46.3 % (37.0-47.0); HEMOGLOBIN 15.2 g/dL (12.0-16.0); MCH 29.9 PG (27-31); MCHC 32.8 g/dL (33-37); MCV 91.1 FL (81-99); MPV 10.8 FL (7.4-10.4); RBC 5.08 XMIL (4.2-5.4); RDW 14.9 % (11.5-14.5); WBC 11.07 X1000 (4.8-10.8)
[2019-02-16 06:03] LABS: AGAP 18; ALB/GLOB RATIO 0.8; ALBUMIN 3.5 g/dL (3.5-5.0); ALKALINE PHOSPHATASE 87 U/L (32-104); BUN 30 mg/dL (8-22); CALCIUM 9.5 mg/dL (8.8-10.2); CHLORIDE 93 mmol/L (98-107); COSMO 292; CREATININE 0.9 mg/dL (0.5-0.9); ESTIMATED GFR > 60; GLUCOSE 148 mg/dL (70-104); GOT 47 U/L (10-30); GPT 42 U/L (10-36); POTASSIUM 3.3 mmol/L (3.5-5.1); SODIUM 142 mmol/L (136-145); TCO2 31 mmol/L (25-35); TOTAL BILIRUBIN 0.95 mg/dL (0.20-1.00); TOTAL PROTEIN 7.8 g/dL (6.3-8.3)
[2019-02-16] MEDS: ZYVOX 600 MG/D5W 600 MG/300 ML IVPB IV SCH ×2 (06:23→18:49)
--- NOTE | 2019-02-16 07:11 | Diag Imaging Result Doc PS360 ---
EXAM: CHEST-PORTABLE 02/16/2019 HISTORY: respiratory failure TECHNIQUE: AP portable at 0529 COMMENT: There continues to be opacification in the lateral left base. There has been some slight improvement with portions of the left hemidiaphragm now being visible. The endotracheal tube has been removed. The NG tube has been removed since the previous study of 02/15/2019. IMPRESSION: Minimal improvement in atelectasis or pneumonia left lower lobe. Electronically signed by Marco Bernard 02/16/2019 7:09 AM
--- NOTE | 2019-02-16 08:03 | PROGRESS NOTE ---
DATE: 02/16/2019 SUBJECTIVE: This patient is lying comfortably in bed. She is following commands for me but she is not answering my questions. She is on the BiPAP machine. X-ray looks a little bit better. She has been responding too good to the diuretics. We have a negative balance in 24 hours of 3.1 L and a total negative balance of 11.6 L during this hospitalization. I will add a little bit of Clinimix since I do not think this patient will tolerate p.o. Her abdomen seems to be more distended and she has been getting suppositories so I will add an enema. OBJECTIVE: Vital Signs: Temperature 97.3 degrees, pulse 81, respiratory rate 17, blood pressure 133/82, oxygen saturation 95% on the BiPAP machine. HEENT: Head normocephalic. No trauma. PERRLA. Neck: Supple. No JVD. No masses. Central trachea. Chest: Coarse breath sounds bilaterally with rhonchi, mostly at the bases, especially on the left side. Abdomen: Soft. Slightly to moderately distended. Positive bowel sounds. Extremities: No edema, no clubbing, no cyanosis. Neurological Examination: This patient is awake. She is alert. She is following commands on and off but she is not answering questions for me. Laboratory: WBC 11, hemoglobin 15.2, hematocrit 46.3, and platelets 240,000. PCO2 64. Sodium 142, potassium 3.3, chloride 93, bicarbonate 31, BUN 30, creatinine 0.9, glucose 148, calcium 9.5. AST 47, ALT 42, alkaline phosphatase 87. ASSESSMENT AND PLAN: 1. Acute on chronic hypoxemic respiratory failure, likely secondary to aspiration pneumonia. X- ray looks a little bit better. Continue with broad spectrum antibiotics. She had been extubated yesterday. We will continue with the same management. 2. Acute hypercarbic respiratory failure. Continue with the same management. She is on the BiPAP machine at this moment. 3. Aspiration pneumonia, more evident of the left lower lobe. WBC is 11 today. We will continue broad-spectrum antibiotics. No fever. 4. Fluid overload. She has been responding really good to Lasix treatment. We have a negative balance of 11.6 L so far. 5. Acute renal failure, improving. Creatinine has been within normal limits. 6. Morbid obesity with a body mass index of 42.2. Aware. It has been decreasing slowly since we are taking care of the fluids. 7. History of chronic pain. Aware. 8. Hyperlipidemia. Continue to monitor for now. 9. History of congestive heart failure, probably right-sided. Echocardiogram showed an ejection fraction of 55 to 60 percent. 10. Anxiety. It looks like this patient has been taking some medication for anxiety. Probably, we need to decrease the amount of those medications upon discharge. 11. Nutritional status. She was getting a feeding tube which has been stopped due to extubation. She is on the BiPAP machine today. I will put her on Clinimix. 12. Constipation. She has been getting suppositories twice a day and also MiraLAX. I will use an enema today to see how she does. 13. Gastrointestinal prophylaxis with famotidine. 14. Deep vein thrombosis prophylaxis with heparin. 15. Hypokalemia. I will replace the potassium. CRITICAL CARE TIME: 30 minutes. cc: Jamie Nixon MD
[2019-02-16] MEDS: DULCOLAX PR SCH ×2 (08:15→21:34)
[2019-02-16] MEDS: CLINIMIX E 4.25%-5% SOLUTION 1,000 ML IV SCH ×2 (08:16→21:31)
[2019-02-16] MEDS: POTASSIUM CHLORIDE 20 MEQ/SWI 20 MEQ/100 ML IVPB IV SCH ×2 (08:19→10:38)
[2019-02-16] MEDS: PEPCID IV SCH ×2 (08:30→21:35)
[2019-02-16] MEDS: MIRALAX PO SCH (08:31)
[2019-02-16] MEDS: LASIX IV SCH ×2 (10:37→21:34)
--- NOTE | 2019-02-16 14:12 | Diag Imaging Result Doc PS360 ---
EXAM: CT HEAD W/O CONTRAST 02/16/2019 HISTORY: expressive aphasia TECHNIQUE: This exam was performed using automated exposure control, adjustment of mA or kV according to patient size, and/or use of iterative reconstruction technique. COMMENT: There are air-fluid levels in both maxillary sinuses and multiple ethmoid air cells are opacified. There is some fluid and mucosal thickening in the right frontal sinus and there is near complete opacification of both sphenoid sinuses. There is periventricular white matter lucency present particularly in the frontal regions. The appearance of the brain has not changed significantly since the previous examination of 02/11/2019. IMPRESSION: Chronic ischemic microvascular changes. Sinusitis. Further evaluation with MRI may be desirable given the chronic changes and current symptoms. Electronically signed by Marco Bernard 02/16/2019 2:10 PM
--- NOTE | 2019-02-16 14:28 | PULMONOLOGY PROGRESS NOTE ---
DATE: 02/16/2019 SUBJECTIVE: The patient is awake and alert. She will follow commands. She will not respond to questions and appears to have an expressive aphasia. She has no increased work of breathing off mechanical ventilation. OBJECTIVE: The patient has been afebrile for the last 24 hours. Blood pressure 147/82, heart rate 80, respiratory rate 18, oxygen saturation 96%. HEENT: Pupils are equal and reactive. Oropharynx appears clear. Neck: Supple. Chest: Reveals good air entry bilaterally without wheezing or rhonchi. Cardiac exam: S1, S2. Abdomen: Obese and soft. Extremities are without edema. LABORATORIES: Chest x-ray reveals pneumonia at the left base with marginal improvement. White blood count 11.07, hemoglobin 15.2, platelet count 240,000. Arterial blood gas reveals a pH 7.39, pCO2 of 64, pO2 of 100. Sodium 142, potassium 3.3, chloride 93, bicarbonate 31, BUN 30, creatinine 0.9. IMPRESSION: 1. 73-year-old with acute on chronic hypoxemic respiratory failure. 2. Acute on chronic hypercapnic respiratory failure. 3. Aspiration pneumonia. 4. Diabetes mellitus. 5. Resolving renal failure. 6. Expressive aphasia. DISCUSSION: 73-year-old with problems outlined above. She is doing well off mechanical ventilation, but does appear to have an expressive aphasia. PLAN: 1. CT scan of the brain this morning to evaluate for possible stroke given expressive aphasia. 2. Continue to cycle BiPAP at bedtime and p.r.n. 3. Agree with plans to begin Clinimix. Patient will need a speech evaluation prior to initiating diet. 4. Anticipate the need for rehab at the time of discharge. cc: Gordy Frias MD
[2019-02-17] MEDS: HUMULIN R SUBQ SCH ×6 (01:05→21:03)
[2019-02-17] MEDS: DUONEB (A & A) INH SCH ×6 (03:20→23:25)
[2019-02-17] MEDS: ZOSYN 3.375 GM in NS 50 ML IV SCH ×4 (03:41→21:03)
[2019-02-17 04:22] LABS: ALLEN TEST YES; BLOOD TYPE ARTERIAL; HCO3-(ACT) 35.8 mmoll (20.0-26.0); METHB 0.8 % (0.0-1.5); O2(CT) 20.8 mL/dL (15.0-23.0); O2HB 97.4 % (95.0-99.0); PCO2(98.6) 45 mmHg (35-45); PO2(98.6) 163 mmHg (60-100); SAMPLE BLOOD; SAO2 100.5 % (95.0-100.0); pH(98.6) 7.54 (7.35-7.45)
[2019-02-17 04:23] LABS: MODALITY BI PAP
[2019-02-17] MEDS: HEPARIN SUBQ SCH ×3 (04:35→21:00)
[2019-02-17] MEDS: ZYVOX 600 MG/D5W 600 MG/300 ML IVPB IV SCH ×2 (06:20→19:54)
--- NOTE | 2019-02-17 06:20 | Diag Imaging Result Doc PS360 ---
EXAM: CHEST-PORTABLE HISTORY: respiratory failure TECHNIQUE: Portable chest single view COMPARISON: 02/16/2019 FINDINGS: Poor inspiratory effort. Heart is mildly prominent. There is a small left pleural effusion. Mild pulmonary edema. Left basilar atelectasis and/or infiltrates. IMPRESSION: No interval improvement. Electronically signed by Mark Melendez 02/17/2019 6:17 AM
[2019-02-17 06:23] LABS: HEMATOCRIT 45.3 % (37.0-47.0); HEMOGLOBIN 14.3 g/dL (12.0-16.0); MCH 29.7 PG (27-31); MCHC 31.6 g/dL (33-37); MPV 11.3 FL (7.4-10.4); RBC 4.82 XMIL (4.2-5.4); RDW 14.7 % (11.5-14.5); WBC 9.83 X1000 (4.8-10.8)
[2019-02-17 07:14] LABS: AGAP 16; ALB/GLOB RATIO 0.9; ALBUMIN 3.4 g/dL (3.5-5.0); ALKALINE PHOSPHATASE 72 U/L (32-104); BUN 34 mg/dL (8-22); CALCIUM 9.3 mg/dL (8.8-10.2); CHLORIDE 94 mmol/L (98-107); COSMO 294; CREATININE 0.8 mg/dL (0.5-0.9); ESTIMATED GFR > 60; GLUCOSE 158 mg/dL (70-104); GOT 40 U/L (10-30); GPT 35 U/L (10-36); POTASSIUM 3.9 mmol/L (3.5-5.1); SODIUM 142 mmol/L (136-145); TCO2 32 mmol/L (25-35); TOTAL BILIRUBIN 0.71 mg/dL (0.20-1.00); TOTAL PROTEIN 7.1 g/dL (6.3-8.3)
--- NOTE | 2019-02-17 08:06 | PROGRESS NOTE ---
DATE: 02/17/2019 SUBJECTIVE: This patient is awake. She is lying comfortably in bed. She is following commands but she is not answering any of my questions. We believe that probably she has expressive aphasia. A CT scan is negative for any acute problem. I will get neurology department to evaluate this patient. OBJECTIVE: Vital Signs: Temperature 97.6 degrees, pulse 76, respiratory rate 17, blood pressure 128/75, oxygen saturation 97% on the BiPAP machine. HEENT: Head normocephalic. No trauma. PERRLA. Neck: Supple. No JVD. No masses. Central trachea. Chest: Coarse breath sounds bilaterally with rhonchi, mostly at the bases, especially on the left side. Abdomen: Soft. Slightly to moderately distended. Positive bowel sounds. Extremities: No edema, no clubbing, no cyanosis. Neurological Examination: The patient is awake. She is alert. She is following commands on and off but she is not answering any of my questions. Laboratory: WBC 9.8, hemoglobin 14.3, hematocrit 45.3, platelets 225,000. Sodium 142, potassium 3.9, chloride 94, bicarbonate 32, BUN 34, creatinine 0.8, glucose 158, calcium 9.3. ASSESSMENT AND PLAN: 1. Acute on chronic hypoxemic respiratory failure, likely secondary to aspiration pneumonia. Continue with broad-spectrum antibiotics. She has been extubated 2 days ago. We will continue with the same management. She is on the BiPAP machine right now. 2. Acute hypercarbic respiratory failure. Continue with the same treatment. 3. Aspiration pneumonia, more evident of the left lower lobe. WBC normalized. Continue with antibiotics. No fever. 4. Fluid overload. She responded really well to a trial of Lasix. So far, we have a negative balance of 11 L. 5. Acute renal failure, improving. Creatinine is 0.8 today. 6. Morbid obesity with a body mass index of 42.2. Aware. 7. History of chronic pain. Aware. 8. Hyperlipidemia. Continue to monitor for now. 9. Expressive aphasia. I am not quite sure if she has also some focal weakness. I cannot find focal weakness on my physical exam but she was not able to talk yesterday and today. I will request an evaluation by the neurology department. Probably, we will need to get an MRI but I will wait for recommendations. 10. Anxiety. It looks like this patient has been taking some medications for anxiety at home. Probably, we need to decrease the amount of those medications upon discharge. 11. Nutritional status. She used to be on a feeding tube, which has been stopped due to the extubation. Now, I will continue with Clinimix. 12. Constipation. It is reported that she had a couple of bowel movements. I will continue with the same management. 13. Gastrointestinal prophylaxis with famotidine. 14. Deep venous thrombosis prophylaxis with heparin. 15. Hypokalemia, resolved. CRITICAL CARE TIME: 35 minutes. cc: Jamie Nixon MD
[2019-02-17] MEDS: CLINIMIX E 4.25%-5% SOLUTION 1,000 ML IV SCH (09:24)
[2019-02-17] MEDS: LASIX IV SCH ×3 (09:24→21:58)
--- NOTE | 2019-02-17 09:38 | CONSULTATION ---
DATE OF CONSULTATION: 02/17/2019 Ms. Smith is 73 years old and there appears to be recent onset dysphasia. She was reportedly found unresponsive or poorly responsive 6 days ago at home. She was brought in and found to be in respiratory distress. She was intubated, mechanically ventilated, sedated. She was extubated a few days ago and seemed to have trouble following commands. She did not communicate with speech. There was not noted to be any focal motor finding. She has not had further unresponsiveness since sedation was stopped. Workup includes noncontrast CT of the head done on presentation on 02/11/2019 and repeated on 02/16/2019. These both show similar periventricular white matter lucency typical of old chronic ischemic change without anything acute or focal. There is no evidence of bleeding. The white matter changes are not significantly different comparing the 02/11/2019 scan to the 02/16/2019 scan. Recent lab shows blood sugars 140s-220s, A1c was 8.0%, mildly elevated liver enzymes are improving day by day. Urine toxicology on admission was all negative. She has been afebrile this admission. Blood pressure in the last 24 hours has ranged 110s to 160s. Heart rate in the last 24 hours has ranged 70s to 80s. There is a reported past history of COPD, diabetes mellitus type 2, heart failure, hypertension, dyslipidemia. The home medication list may not be completely accurate. That shows alprazolam 1 mg b.i.d., buspirone, citalopram, gabapentin, hydrocodone/acetaminophen 5/325 p.r.n., loperamide, tizanidine, trazodone 50 mg at bedtime. On exam, Ms. Smith is awake. She appears alert. She followed some simple commands including closing eyes and protruding tongue consistently. When I asked her to hold up fingers, she raised an arm but did not hold up fingers. She did not speak to me. She did not follow more complicated commands. She used her right and left arms purposefully. Limb tone is symmetric in the arms. She was not attentive to individual muscle group testing. Plantar response is silent bilaterally. There is a good bit of withdrawal with stroking the sole of each foot. She responded similarly to pinprick over the left limbs as over the right. There is full lateral eye movement bilaterally. Facial motility is symmetric. Tongue is midline. She was not attentive to counting fingers to test visual field. She did blink with visual threat approaching from the left and from the right. Head is unremarkable. There is no meningismus. IMPRESSION: Apparent dysphasia. I do not find definite motor, sensory, or visual deficit. She has risk factors for cerebrovascular ischemic event. Negative CT about 24 hours after she was noted to have difficulty communicating with speech is reassuring. I do not think we have to do anything urgently now. I would try to maintain adequate blood pressure, continue fluids, treat blood sugar and lipids aggressively, continue medical support. Depending on her clinical course, we might need to consider repeat brain imaging, possibly MRI if practical later. I am not certain of the etiology of her initial event. I do not know if this was primary respiratory failure or if something else happened. I do note home medicine list includes benzodiazepine and urine drug screen was negative for benzodiazepine on presentation. Benzodiazepine withdrawal seizure would not be impossible. We might consider EEG later. No urgent suggestions from Neurology standpoint today. Thanks for asking us to see Ms. Smith. cc: MD KAVITA Diaz III
[2019-02-17] MEDS: DULCOLAX PR SCH ×2 (09:43→21:00)
[2019-02-17] MEDS: MIRALAX PO SCH (09:43)
[2019-02-17] MEDS: PEPCID IV SCH ×2 (09:44→21:01)
--- NOTE | 2019-02-17 15:51 | PULMONOLOGY PROGRESS NOTE ---
DATE: 02/17/2019 SUBJECTIVE: The patient is awake and alert. She has no increased work of breathing. She does answer questions today which is different than yesterday. OBJECTIVE: Vital Signs: The patient has been afebrile for the last 24 hours. Blood pressure 137/76, heart rate 78, respiratory rate 21, oxygen saturation 94% on 50% face mask. HEENT: Pupils are equal and reactive. Oropharynx appears clear. Neck: Supple. Chest: Reveals distant breath sounds bilaterally without wheezing or rhonchi. Cardiac exam: S1, S2. Abdomen: Soft and obese. Extremities: Reveal trace edema. LABORATORIES: White blood count 9.8, hemoglobin 14.3, platelet count 225,000. Sodium 142, potassium 3.9, chloride 94, bicarbonate 32, BUN 34, creatinine 0.8. Chest x-ray reveals generous cardiac silhouette with persistent changes at the left base. IMPRESSIONS: A 73-year-old with: 1. Acute on chronic hypoxemic respiratory failure. 2. Acute on chronic hypercapnic respiratory failure. 3. Aspiration pneumonia. 4. Diabetes mellitus. 5. Renal failure on presentation which has resolved. 6. Expressive aphasia which has improved over the last 24 hours. PLAN: 1. Ask for a swallowing study to evaluate potential to resume p.o. intake. 2. Continue to cycle BiPAP at bedtime and p.r.n. 3. Initiate physical therapy. 4. Neurology evaluation in progress. cc: Gordy Frias MD
[2019-02-17] MEDS: SODIUM CHLORIDE 0.9% INJ SCH (21:01)
[2019-02-17] MEDS ORDERED: BLISTEX MEDICATED BERRY LIP BALM TOP PRN (22:43)
[2019-02-17] MEDS: MORPHINE IV PRN (23:31)
[2019-02-18] MEDS: CLINIMIX E 4.25%-5% SOLUTION 1,000 ML IV SCH ×2 (00:08→13:19)
[2019-02-18] MEDS: ZOSYN 3.375 GM in NS 50 ML IV SCH ×4 (03:23→21:49)
[2019-02-18] MEDS: HUMULIN R SUBQ SCH ×6 (03:25→21:25)
[2019-02-18] MEDS: DUONEB (A & A) INH SCH ×6 (03:37→23:24)
[2019-02-18] MEDS: HEPARIN SUBQ SCH ×3 (04:39→21:49)
[2019-02-18 06:14] LABS: HEMATOCRIT 44.5 % (37.0-47.0); MCH 29.9 PG (27-31); MCHC 31.5 g/dL (33-37); MCV 95.1 FL (81-99); MPV 10.8 FL (7.4-10.4); RBC 4.68 XMIL (4.2-5.4); RDW 14.6 % (11.5-14.5); WBC 11.94 X1000 (4.8-10.8)
[2019-02-18 06:36] LABS: AGAP 12; ALB/GLOB RATIO 0.9; ALBUMIN 3.7 g/dL (3.5-5.0); ALKALINE PHOSPHATASE 71 U/L (32-104); BUN 35 mg/dL (8-22); CALCIUM 10.1 mg/dL (8.8-10.2); CHLORIDE 95 mmol/L (98-107); COSMO 294; CREATININE 0.8 mg/dL (0.5-0.9); ESTIMATED GFR > 60; GLUCOSE 145 mg/dL (70-104); GOT 37 U/L (10-30); GPT 33 U/L (10-36); POTASSIUM 3.6 mmol/L (3.5-5.1); SODIUM 142 mmol/L (136-145); TCO2 35 mmol/L (25-35); TOTAL BILIRUBIN 0.57 mg/dL (0.20-1.00); TOTAL PROTEIN 7.6 g/dL (6.3-8.3)
--- NOTE | 2019-02-18 07:04 | Diag Imaging Result Doc PS360 ---
EXAM: CHEST-PORTABLE 02/18/2019 HISTORY: respiratory failure TECHNIQUE: AP portable at 0532 COMMENT: There is opacification in the area of the left costophrenic angle. This was also present on 02/17/2019 and 02/16/2019. IMPRESSION: Atelectasis versus pneumonia left lower lobe. Electronically signed by Marco Bernard 02/18/2019 7:02 AM
[2019-02-18] MEDS: ZYVOX 600 MG/D5W 600 MG/300 ML IVPB IV SCH ×2 (07:51→18:43)
--- NOTE | 2019-02-18 08:07 | PROGRESS NOTE ---
DATE: 02/18/2019 SUBJECTIVE: This patient seems to be doing better. She is answering my questions and actually she is oriented x3. Her answers are slow and she is extremely weak. I have requested physical therapy and occupational therapy, a swallow evaluation has been requested already. OBJECTIVE: Vital Signs: Temperature 97.5 degrees, pulse 62, respiratory rate 17, blood pressure 140/74, oxygen saturation 95% on a Venturi mask. HEENT: Head normocephalic, no trauma. PERRLA. Neck: Supple. No JVD. No masses. Central trachea. Chest: Coarse breath sounds bilaterally, mostly at the bases, with some rhonchi, especially on the left side. Abdomen: Soft, is not tender. Positive bowel sounds. Protuberant. Slightly distended. Extremities: No edema, no clubbing, no cyanosis. Neurological examination: This patient is awake. She is alert. She is following commands. She is answering my simple questions. She is oriented x3. Her answers are slow, and she is extremely weak. LABORATORY: WBC 11.9, hemoglobin 14, hematocrit 44.5, platelets 225. Sodium 142, potassium 3.6, chloride 95, bicarbonate 35. BUN 35, creatinine 0.8, glucose 145, calcium 10.1. ASSESSMENT AND PLAN: 1. Acute on chronic hypoxemic respiratory failure secondary to aspiration pneumonia. Continue with broad spectrum antibiotics. She has been extubated 3 days ago. She is using a Ventimask at this moment, and BiPAP during the night and as-needed. Pulmonary Department following this patient closely. 2. Acute hypercarbic respiratory failure. Continue with same treatment as above. 3. Aspiration pneumonia, more evident on the left lower lobe. White blood count stable. Continue with antibiotics. No fever. 4. Fluid overload. She responded well to the trial of Lasix. So far we have a negative balance of 11.4 L. 5. Acute renal failure, improving. Creatinine within normal limits. 6. Morbid obesity with a body mass index of 41.5. Aware. 7. History of chronic pain, aware. 8. Hyperlipidemia. Continue to monitor. 9. Expressive aphasia, resolved. 10. Anxiety. It looks like this patient has been taking medication for anxiety at home. Probably we need to decrease the amount of the medication or stop some of them upon discharge. 11. Nutritional status: Continue with Clinimix. Hopefully, she will have a formal swallow evaluation today so we can start feeding this patient by mouth. 12. Constipation. She has been having bowel movements. Continue with same management. 13. Gastrointestinal prophylaxis with famotidine. 14. Deep vein thrombosis prophylaxis with heparin. 15. Hypokalemia, resolved. 16. Generalized weakness and physical deconditioning. I have requested an evaluation by physical therapy and occupational therapy. Likely this patient will need to go to a rehab center. We will continue to monitor. cc: Jamie Nixon MD
[2019-02-18] MEDS: MIRALAX PO SCH (08:09)
[2019-02-18] MEDS: DULCOLAX PR SCH (08:09)
--- NOTE | 2019-02-18 08:31 | PROGRESS NOTE ---
DATE: 02/18/2019 LOCATION: ICU bed 10. Ms. Smith is awake, more alert, more attentive today. She spoke her name, and I could understand that, but her speech is very dysarthric. She was more attentive to language testing today than yesterday. She did well naming objects, but had trouble naming parts of objects. She followed simple commands well today. She did better than yesterday with commands requiring digit distinction and right/left distinction, but still had significant problems there. She did not follow request for repeating. She seemed to move her right arm more purposefully than the left, but that was not consistent. Tone is symmetric in the limbs. She has good power on limited testing throughout. I do not have any new thoughts or new suggestions from neurology standpoint today. She seems to be improving with resolving focal and global encephalopathy. Further plans will depend on her clinical course. Thank you for asking Neurology to see her. cc: MD KAVITA Diaz III
[2019-02-18] MEDS: PEPCID IV SCH ×2 (10:52→21:48)
[2019-02-18] MEDS: SODIUM CHLORIDE 0.9% INJ SCH ×2 (10:53→21:48)
[2019-02-18] MEDS: LASIX IV SCH ×2 (10:53→21:49)
[2019-02-18] MEDS: MORPHINE IV PRN (18:43)
--- NOTE | 2019-02-18 21:58 | PULMONOLOGY PROGRESS NOTE ---
DATE: 02/18/2019 SUBJECTIVE: The patient is awake, alert, and conversant. She is without specific complaints. She is asking when does she gets to go home. OBJECTIVE: Vital Signs: BP 132/57, heart rate 72, respiratory rate 21, oxygen saturation 95% on 6 L per nasal cannula. HEENT: Pupils are equal reactive. Oropharynx appears clear. Neck: Is supple. Chest: Reveals diminished breath sounds bilaterally with prolonged expiratory phase. Cardiac exam: Distant heart sounds. Normal S1, normal S2. Abdomen: Obese and soft. Extremities: Reveal trace peripheral edema. LABORATORIES: Chest x-ray reveals atelectasis/pneumonia at the left lung base. White blood count 11.9, hemoglobin 14.0, platelet count 225,000. Sodium 142, potassium 3.6, chloride 95, bicarbonate 35, BUN 35, creatinine 0.8. IMPRESSION: A 73-year-old with 1. Acute hypoxemic respiratory failure. 2. Chronic hypoxemic respiratory failure. 3. Acute hypercapnic respiratory failure. 4. Chronic hypercapnic respiratory failure. 5. Aspiration pneumonia. 6. Diabetes mellitus. 7. Encephalopathy with continued improvement. DISCUSSION: This is a 73-year-old with problems outlined above. Her p.o. intake is improved and she ate 75% of her last meal. Clinically, she is rapidly improving each day. RECOMMENDATIONS: 1. Continue to cycle BiPAP at bedtime and p.r.n. 2. Discontinue Clinimix. 3. Initiate physical therapy. 4. Anticipate the need for rehabilitation. cc: Gordy Frias MD
[2019-02-19] MEDS: DULCOLAX PR SCH ×3 (02:53→23:01)
[2019-02-19] MEDS: HUMULIN R SUBQ SCH ×6 (02:53→20:54)
[2019-02-19] MEDS: DUONEB (A & A) INH SCH ×5 (03:18→20:02)
[2019-02-19] MEDS: ZOSYN 3.375 GM in NS 50 ML IV SCH ×3 (04:26→18:17)
[2019-02-19] MEDS: HEPARIN SUBQ SCH ×3 (04:26→21:02)
[2019-02-19 07:05] LABS: HEMATOCRIT 44.1 % (37.0-47.0); HEMOGLOBIN 14.1 g/dL (12.0-16.0); MCV 93.8 FL (81-99); MPV 10.5 FL (7.4-10.4); RBC 4.7 XMIL (4.2-5.4); RDW 14.4 % (11.5-14.5); WBC 11.29 X1000 (4.8-10.8)
[2019-02-19 07:35] LABS: AGAP 13; ALB/GLOB RATIO 1.3; ALBUMIN 3.8 g/dL (3.5-5.0); ALKALINE PHOSPHATASE 71 U/L (32-104); BUN 31 mg/dL (8-22); CALCIUM 9.6 mg/dL (8.8-10.2); CHLORIDE 92 mmol/L (98-107); COSMO 286; CREATININE 0.7 mg/dL (0.5-0.9); ESTIMATED GFR > 60; GLUCOSE 127 mg/dL (70-104); GOT 51 U/L (10-30); GPT 48 U/L (10-36); POTASSIUM 3.4 mmol/L (3.5-5.1); SODIUM 139 mmol/L (136-145); TCO2 34 mmol/L (25-35); TOTAL BILIRUBIN 0.75 mg/dL (0.20-1.00); TOTAL PROTEIN 6.8 g/dL (6.3-8.3)
[2019-02-19] MEDS ORDERED: KLOR-CON PO ONE (08:36)
[2019-02-19] MEDS: LASIX PO SCH ×2 (09:00→21:02)
[2019-02-19] MEDS: MIRALAX PO SCH (09:02)
--- NOTE | 2019-02-19 09:11 | PROGRESS NOTE ---
DATE: 02/19/2019 LOCATION: Room 445. SUBJECTIVE: Ms. Smith has continued to improve. This morning, she is sitting up, feeding herself. OBJECTIVE: She is awake, alert, attentive. She seems appropriate. Speech is not significantly dysarthric, but she did mumble a few times. She appears to be intact on basic bedside language testing today. She was much better with right/left distinction, digit distinction, fluency, and repeating. I do not have any urgent suggestion from a neurology standpoint today. Her recovery is encouraging. Thank you for asking us to see Ms. Smith. cc: Josué Sanchez III, MD [facility]
[2019-02-19] MEDS: ZYVOX 600 MG/D5W 600 MG/300 ML IVPB IV SCH ×2 (10:13→21:02)
--- NOTE | 2019-02-19 15:16 | PROGRESS NOTE ---
DATE: 02/19/2019 SUBJECTIVE: The patient looks much better today. She was sitting at the bedside and eating by herself. She is completely alert and oriented, but she is extremely weak. Physical Therapy and Occupational Therapy on board, and the plan is to send this patient to a rehab center. We will continue with the same management. She is tolerating the nasal cannula. OBJECTIVE: Vital Signs: Temperature 98.5 degrees, pulse 82, respiratory rate 16, blood pressure 141/77, and oxygen saturation 95% on 6 L of nasal cannula. HEENT: Head normocephalic. No trauma. PERRLA. Neck: Supple. No JVD. No masses. Central trachea. Chest: Coarse breath sounds bilaterally mostly at the bases with some rhonchi, especially on the left side. Abdomen: Soft. Nontender. Nondistended. Protuberant. Extremities: No edema. No clubbing. No cyanosis. Neurological: The patient is awake. She is alert. She is following commands. She is answering my questions. She has generalized weakness. LABORATORY: WBC 11.2, hemoglobin 14.1, hematocrit 44.1, and platelets 239,000. Sodium 139, potassium 3.4, chloride 92, bicarbonate 34, BUN 31, creatinine 0.7, glucose 127, calcium 9.6, AST 51, ALT 48, alkaline phosphatase 71, and albumin 3.8. ASSESSMENT AND PLAN: 1. Acute on chronic hypoxemic respiratory failure secondary to aspiration pneumonia. We will continue with antibiotics. She has been extubated 4 days ago, and she has been doing much better. She is tolerating the nasal cannula. We will continue to monitor. 2. Acute hypercarbic respiratory failure. Continue with same treatment, as above. 3. Aspiration pneumonia more evident on the left lower lobe. White blood count stable. Continue with antibiotics. No fever. 4. Fluid overload. She responded well to the trial of Lasix. So far, we have a negative balance of 10.9 L. She is feeling better. 5. Acute renal failure, improved. 6. Morbid obesity with a body mass index of 42.9. 7. History of chronic pain aware. 8. Hyperlipidemia. Continue to monitor. 9. Global encephalopathy resolved. 10. Anxiety. It looks like this patient has been taking a lot of medication for anxiety at home. Probably, we need to decrease the amount of those medication or even stop them upon discharge. 11. Nutritional status. This patient is tolerating p.o. Clinimix has been stopped. 12. Constipation. Continue with same management. 13. Gastrointestinal prophylaxis with famotidine. 14. Deep vein thrombosis prophylaxis with heparin. 15. Hypokalemia. I will replace it. 16. Generalized weakness and physical deconditioning. Continue physical therapy and occupational therapy. The plan is to send this patient to a rehab center. cc: Jamie Nixon MD
[2019-02-19] MEDS: MORPHINE IV PRN (21:21)
[2019-02-20] MEDS: DUONEB (A & A) INH SCH ×7 (00:05→23:07)
[2019-02-20] MEDS: HUMULIN R SUBQ SCH ×5 (00:48→17:04)
[2019-02-20] MEDS: ZOSYN 3.375 GM in NS 50 ML IV SCH ×5 (00:48→18:18)
[2019-02-20] MEDS: HEPARIN SUBQ SCH ×3 (05:29→22:12)
[2019-02-20 06:37] LABS: BASO# 0.07 X1000 (0.0-0.2); BASO% 0.6 % (0.0-0.8); EOS# 0.39 X1000 (0.0-0.7); EOS% 3.6 % (0.0-10.0); HEMATOCRIT 43.9 % (37.0-47.0); HEMOGLOBIN 14.4 g/dL (12.0-16.0); IMM GRAN# 0.02 X1000 (0.0-0.04); IMM GRAN% 0.2 % (0.0-0.5); LYMPH# 2.94 X1000 (1.2-3.4); LYMPH% 27.1 % (20.5-51.1); MCH 29.6 PG (27-31); MCHC 32.8 g/dL (33-37); MCV 90.3 FL (81-99); MONO# 1.16 X1000 (0.11-0.59); MONO% 10.7 % (1.7-9.3); MPV 10.2 FL (7.4-10.4); NEUT# 6.27 X1000 (1.4-6.5); NEUT% 57.8 % (42.2-75.2); PLT 249 X1000 (130-400); RBC 4.86 XMIL (4.2-5.4); WBC 10.85 X1000 (4.8-10.8)
[2019-02-20 07:13] LABS: AGAP 13; ALB/GLOB RATIO 0.9; ALBUMIN 3.8 g/dL (3.5-5.0); ALKALINE PHOSPHATASE 77 U/L (32-104); BUN 24 mg/dL (8-22); CALCIUM 10.2 mg/dL (8.8-10.2); CHLORIDE 93 mmol/L (98-107); COSMO 277; CREATININE 0.8 mg/dL (0.5-0.9); ESTIMATED GFR > 60; GLUCOSE 121 mg/dL (70-104); GOT 86 U/L (10-30); GPT 84 U/L (10-36); POTASSIUM 3.5 mmol/L (3.5-5.1); SODIUM 136 mmol/L (136-145); TCO2 30 mmol/L (25-35); TOTAL PROTEIN 7.9 g/dL (6.3-8.3)
--- NOTE | 2019-02-20 08:00 | PULMONOLOGY PROGRESS NOTE ---
DATE: 02/19/2019 SUBJECTIVE: The patient is awake, alert, and conversant. She is without specific complaints. She is tolerating p.o. intake. OBJECTIVE: Vital Signs: The patient has been afebrile for the last 24 hours. Blood pressure 140/77, heart rate 83, respiratory rate 16, oxygen saturation 94% on nasal cannula. HEENT: Pupils are equal and reactive. Oropharynx appears clear. Neck: Supple. Chest: Reveals prolonged expiratory phase with crackles in the bases. Cardiac: S1-S2. Abdomen: Obese and soft with good bowel sounds. Extremities: Reveal decreasing edema. LABORATORY DATA: White blood count 11.29, hemoglobin 14.1, platelet count 239,000, sodium 139, potassium 3.4, chloride 92, bicarbonate 34, BUN 31, creatinine 0.7. IMPRESSION: This is a 73-year-old with: 1. Aspiration pneumonia. 2. Acute hypoxemic respiratory failure. 3. Acute hypercapnic respiratory failure. 4. Chronic hypoxemic and chronic hypercapnic respiratory failure. 5. Diabetes mellitus. 6. Morbid obesity. DISCUSSION: This is a 73-year-old with problems as outlined above. She continues to improve daily. From a pulmonary standpoint, she is ready for discharge soon to home or to rehab as decided by the hospitalist. PLAN: 1. Continue to cycle BiPAP at bedtime and p.r.n. 2. Continue p.o. intake. 3. Continue physical therapy. 4. Anticipate discharge to a rehab facility. cc: Gordy Frias MD
[2019-02-20] MEDS: LASIX PO SCH ×2 (09:26→22:12)
[2019-02-20] MEDS: DULCOLAX PR SCH ×2 (09:40→23:20)
[2019-02-20] MEDS: MIRALAX PO SCH (09:40)
--- NOTE | 2019-02-20 11:44 | PROGRESS NOTE ---
DATE: 02/20/2019 Ms. Smith is sitting up, awake, alert, attentive, and appropriate. She reports she would like to go home, and she is getting a little bit frustrated with continued hospitalization. She does not have any other specific complaint right now. She denies headache. She does not recall what made her collapse at home. She told me that she had taken alprazolam in the remote past, but that she has not had that in recent years. She believes it may still be on her medicine list, but she has not been taking alprazolam. Therefore, benzodiazepine withdrawal seems unlikely as explanation for the recent episode. She appears to be recovered neurologically. I do not have any new suggestion today. Thanks for asking us to see Ms. mSith. cc: MD KAVITA Diaz III
[2019-02-20] MEDS: ZYVOX 600 MG/D5W 600 MG/300 ML IVPB IV SCH ×2 (12:01→14:12)
--- NOTE | 2019-02-20 19:11 | PROGRESS NOTE ---
DATE: 02/20/2019 SUBJECTIVE: This patient is better today. She is completely alert and oriented x3. She is sitting at the bedside. Family member also at the bedside as well. I believe it is her daughter. The initial plan is to send this patient to a rehab center, but today she is telling me that she wants to go to her house with home health. The daughter believes that this is not a great the and I do believe she needs to go to a rehab center because she lives by herself and she is weak, she will stay today in the hospital but as per the patient, she wants to go home tomorrow now. Neurologically, she is much better. As per the daughter, she is on home O2. Apparently she used to be on 2 L, but now she is on 5 during this hospitalization. As per the daughter she is almost never using oxygen at home, even though she needs it. OBJECTIVE: Vital Signs: Temperature 98.1 degrees, pulse 78, respiratory rate 20, blood pressure 135/78, oxygen saturation 97% on 5 L nasal cannula. HEENT: Head normocephalic. No trauma. PERRLA. Neck: Supple. No JVD. No masses. Central trachea. Chest: Coarse breath sounds bilaterally with some rhonchi at the bases. Abdomen: Soft, nontender, nondistended. No hepatosplenomegaly protuberant. Extremities: No edema, no clubbing, no cyanosis. Neurologic: She is alert. She is oriented. She does have generalized weakness. LABORATORY: WBC 10.8, hemoglobin 14.4, hematocrit 43.9, and platelets 249,000. Sodium 136, potassium 3.5, chloride 93, bicarbonate 30, BUN 24, creatinine 0.8, glucose 121, calcium 10.2. ASSESSMENT AND PLAN: 1. Acute on chronic hypoxemic respiratory failure secondary to aspiration pneumonia. Continue with antibiotics. She has been extubated 5 days ago. She has been doing better. She is still on nasal cannula around 5 L. We will continue to monitor. 2. Acute hypercarbic respiratory failure, continue with same treatment as above. 3. Aspiration pneumonia, more evident on the left lower lobe, white blood cell count stable. Continue with antibiotics. No fever. 4. Fluid overload. She responded well to a trial of Lasix. We have a negative balance of more than 10 L. 5. Acute renal failure, improved. 6. Morbid obesity with a body mass index of 42.9. Aware. 7. History of chronic pain. Aware. 8. Hyperlipidemia. Continue to monitor. 9. Global encephalopathy, resolved. 10. Anxiety. This patient has been taking a lot of medication for anxiety at home. We will need to decrease the amount and/or the dose of those medications upon discharge. 11. Nutritional status. This patient is tolerating p.o.. Clinimix has been stopped already. 12. Constipation continue with same management. 13. Gastrointestinal prophylaxis with famotidine. 14. Deep vein thrombosis prophylaxis with heparin. 15. Hypokalemia, resolved. 16. Generalized weakness and physical deconditioning. Continue with physical therapy and occupational therapy. Initially, the plan was to send this patient to a rehab center, but now she is thinking about going home with possible home health and physical therapy at home. As per the patient, she wants to go home now. She is thinking about home health and physical therapy at home but the daughter at the bedside does not think it is a good idea. She is weak and she lives by herself. She is on home O2, which as per the daughter, she is not using too much. At this moment she is on 5 L. We will talk again tomorrow to decide if she wants to stay and go to rehab or go home with physical therapy and home health. cc: Jamie Nixon MD
[2019-02-21] MEDS: HUMULIN R SUBQ SCH ×7 (00:06→23:15)
[2019-02-21] MEDS: ZYVOX 600 MG/D5W 600 MG/300 ML IVPB IV SCH ×2 (01:20→15:38)
[2019-02-21] MEDS: ZOSYN 3.375 GM in NS 50 ML IV SCH ×4 (01:20→20:28)
[2019-02-21] MEDS: DUONEB (A & A) INH SCH ×5 (04:12→19:51)
[2019-02-21] MEDS: HEPARIN SUBQ SCH ×3 (07:06→20:28)
[2019-02-21 07:41] LABS: BASO# 0.07 X1000 (0.0-0.2); BASO% 0.7 % (0.0-0.8); EOS# 0.32 X1000 (0.0-0.7); EOS% 3.3 % (0.0-10.0); HEMATOCRIT 41.1 % (37.0-47.0); HEMOGLOBIN 13.6 g/dL (12.0-16.0); IMM GRAN# 0.02 X1000 (0.0-0.04); IMM GRAN% 0.2 % (0.0-0.5); LYMPH# 2.27 X1000 (1.2-3.4); LYMPH% 23.7 % (20.5-51.1); MCH 29.7 PG (27-31); MCHC 33.1 g/dL (33-37); MCV 89.7 FL (81-99); MONO# 1.07 X1000 (0.11-0.59); MONO% 11.2 % (1.7-9.3); MPV 10.4 FL (7.4-10.4); NEUT# 5.83 X1000 (1.4-6.5); NEUT% 60.9 % (42.2-75.2); PLT 227 X1000 (130-400); RBC 4.58 XMIL (4.2-5.4); RDW 13.6 % (11.5-14.5); WBC 9.58 X1000 (4.8-10.8)
[2019-02-21 07:58] LABS: AGAP 12; ALB/GLOB RATIO 0.9; ALBUMIN 3.2 g/dL (3.5-5.0); ALKALINE PHOSPHATASE 69 U/L (32-104); BUN 16 mg/dL (8-22); CALCIUM 9.6 mg/dL (8.8-10.2); CHLORIDE 94 mmol/L (98-107); COSMO 277; CREATININE 0.7 mg/dL (0.5-0.9); ESTIMATED GFR > 60; GLUCOSE 165 mg/dL (70-104); GOT 90 U/L (10-30); GPT 98 U/L (10-36); POTASSIUM 3.1 mmol/L (3.5-5.1); SODIUM 136 mmol/L (136-145); TCO2 30 mmol/L (25-35); TOTAL BILIRUBIN 0.56 mg/dL (0.20-1.00); TOTAL PROTEIN 6.8 g/dL (6.3-8.3)
[2019-02-21] MEDS: DULCOLAX PR SCH (09:37)
[2019-02-21] MEDS: LASIX PO SCH ×2 (09:37→20:28)
[2019-02-21] MEDS: MIRALAX PO SCH (09:38)
[2019-02-21] MEDS: MORPHINE IV PRN (09:53)
[2019-02-21] MEDS ORDERED: KLOR-CON PO ONE (10:20)
--- NOTE | 2019-02-21 20:07 | PROGRESS NOTE ---
DATE: 02/21/2019 Ms. Smith is sitting up, listening to music. She is awake, alert, attentive. She answered questions appropriately. There is no evidence of dysphasia now. I do not find any focal neurologic deficit on brief bedside testing. She reports plans for rehab and I concur. I do not have any suggestion from Neurology standpoint. Thanks for asking us to see Ms. Smith. cc: Josué Sanchez III, MD
--- NOTE | 2019-02-21 21:20 | PROGRESS NOTE ---
DATE: 02/21/2019 SUBJECTIVE: No big changes compared with yesterday. She is completely alert and oriented x3. She is sitting at the bedside. She is still using home O2 around 5 L. She still has shortness of breath. OBJECTIVE: Vital Signs: Temperature 97.8 degrees, pulse 75, respiratory rate 20, blood pressure 116/62, oxygen saturation 94% on 5 L of nasal cannula. HEENT: Head normocephalic. No trauma. PERRLA. Neck: Supple. No JVD. No masses. Central trachea. Chest: Coarse breath sounds bilaterally with some rhonchi at the bases. Abdomen: Soft, nontender, nondistended. No hepatosplenomegaly. Extremities: No edema, no clubbing, no cyanosis. Neurological examination: She is alert. She is oriented. She does have generalized weakness. LABORATORY DATA: WBC 9.5, hemoglobin 13.6, hematocrit 41.1, platelets 227,000, sodium 136, potassium 3.1, chloride 94, bicarbonate 30, BUN 16, creatinine 0.7, glucose 165, calcium 9.6, AST 90, ALT 98, alkaline phosphatase 69, albumin 3.2. ASSESSMENT AND PLAN: 1. Acute on chronic hypoxemic respiratory failure secondary to aspiration pneumonia. Continue with antibiotics. She had been extubated 6 days ago, and she has been doing better. She is still on nasal cannula around 5 L. She is still short of breath. We will continue to monitor. 2. Acute hypercarbic respiratory failure. Continue with same treatment, as above. 3. Aspiration pneumonia, more evident of the left lower lobe. White cell count stabilized. Continue with antibiotics. No fever. 4. Fluid overload. She actually responded really well to Lasix. We have a negative balance around 10 L. 5. Acute renal failure, improved. 6. Morbid obesity with a body mass index of 41. Aware. 7. History of chronic pain. Aware. 8. Hyperlipidemia. We will continue to monitor. 9. Global encephalopathy, resolved. 10. Anxiety. It looks like this patient has been taking a lot of medication for anxiety at home. I will either decrease or stop some of them upon discharge. 11. Nutritional status. Continue with the same management. 12. Constipation. Aware. 13. Gastrointestinal prophylaxis with famotidine. 14. Deep vein thrombosis prophylaxis with heparin. 15. Hypokalemia, resolved. 16. Generalized weakness and physical deconditioning. Continue physical therapy. Hopefully this patient will be discharged to a rehab center. cc: Jamie Nixon MD
[2019-02-22] MEDS: ZOSYN 3.375 GM in NS 50 ML IV SCH ×2 (01:05→06:33)
[2019-02-22] MEDS: HUMULIN R SUBQ SCH ×2 (01:06→06:00)
[2019-02-22] MEDS: ZYVOX 600 MG/D5W 600 MG/300 ML IVPB IV SCH (01:20)
[2019-02-22] MEDS: DULCOLAX PR SCH ×2 (03:08→11:18)
[2019-02-22] MEDS: DUONEB (A & A) INH SCH ×3 (04:02→11:35)
[2019-02-22] MEDS: HEPARIN SUBQ SCH (06:33)
[2019-02-22 07:42] LABS: HEMATOCRIT 41.3 % (37.0-47.0); HEMOGLOBIN 13.6 g/dL (12.0-16.0); MCH 29.9 PG (27-31); MCHC 32.9 g/dL (33-37); MCV 90.8 FL (81-99); MPV 10.5 FL (7.4-10.4); RBC 4.55 XMIL (4.2-5.4); RDW 13.7 % (11.5-14.5); WBC 8.31 X1000 (4.8-10.8)
[2019-02-22 08:01] LABS: AGAP 11; ALB/GLOB RATIO 1.1; ALBUMIN 3.9 g/dL (3.5-5.0); ALKALINE PHOSPHATASE 76 U/L (32-104); BUN 15 mg/dL (8-22); CALCIUM 9.8 mg/dL (8.8-10.2); CHLORIDE 97 mmol/L (98-107); COSMO 279; CREATININE 0.8 mg/dL (0.5-0.9); ESTIMATED GFR > 60; GLUCOSE 141 mg/dL (70-104); GOT 81 U/L (10-30); GPT 102 U/L (10-36); POTASSIUM 3.8 mmol/L (3.5-5.1); SODIUM 138 mmol/L (136-145); TCO2 30 mmol/L (25-35); TOTAL BILIRUBIN 0.52 mg/dL (0.20-1.00); TOTAL PROTEIN 7.6 g/dL (6.3-8.3)
[2019-02-22 08:59] VITALS: BP 123/68
[2019-02-22] MEDS: MIRALAX PO SCH (11:18)
--- NOTE | 2019-02-22 23:29 | DISCHARGE SUMMARY ---
CONSULTATIONS: 1. Dr. Gordy Frias with Pulmonology. 2. Dr. Josué Sanchez with Neurology. PERTINENT PROCEDURES: 1. Head CT: No hemorrhage, mild chronic microvascular ischemic changes. 2. Abdomen and pelvis CT: Left lower lobe pneumonia; fatty infiltration of the liver; prominent atherosclerosis; hysterectomy. 3. Chest CT: Atelectasis and infiltrates in the left lung with a small amount in the right bases. 4. Followup head CT: Chronic ischemic microvascular changes; sinusitis. DISCHARGE DIAGNOSES: 1. Aspiration pneumonia. 2. Ozyae-as-wwwogvy hypoxemic hypercapnic respiratory failure, requiring intubation. 3. Diabetes mellitus. 4. Fluid volume overload, resolved. 5. Acute renal failure, improved. 6. Morbid obesity with a body mass index of 41. 7. History of chronic pain. 8. Hyperlipidemia. 9. Global encephalopathy, resolved. 10. Anxiety. Some of her medications were decreased and/or stopped. 11. Constipation, improved. 12. Hypokalemia, resolved. 13. Generalized weakness and physical deconditioning. The patient has been working with physical therapy. Initially the patient was set up to go to rehabilitation; however, she was denied by [facility] twice. She will be going home with home oxygen, home health and follow up with Dr. Gordy Frias. HOSPITAL COURSE: Briefly, Ms. Smith is a 73-year-old female who has a prior history of tobacco use, COPD, chronic hypoxemic respiratory failure and multiple other medical problems. The patient stated she had not been feeling well, as reported by family members. They continued to check on her. She became more lethargic and was brought to the ED, where she was intubated off of ABGs because of hypoxemic and hypercarbic respiratory failure. She was found to have an aspiration pneumonia. She was initiated on appropriate antibiotics and stayed in the ICU several days, intubated. They did an initial head CT that did not show anything acute. She was able to be extubated. She continued to have some metabolic encephalopathy. They repeated a head CT that was completely negative. Dr. Sanchez was brought on board. They were not able to find any focal neurological deficits. She was treated with a full course of IV antibiotics for over 12 days. She will be discharged home with supplemental O2 and home health with physical therapy. She was denied by [facility] for rehab twice, even with a [id number]. VITAL SIGNS: At time of discharge, temperature is 97.5 degrees, heart rate 78, respirations 20, blood pressure 123/68, O2 is 96% on 2 L. DISCHARGE DIET: Healthy heart. DISCHARGE MEDICATIONS: 1. Desyrel 50 mg p.o. at bedtime. 2. Antidiarrheal 2 mg p.o. q.6 hours p.r.n. diarrhea. 3. Celexa 40 mg tablet p.o. daily. 4. [place]-3 softgel 2 capsules p.o. b.i.d. 5. One Daily Women's tablet, 1 tablet p.o. daily. 6. Lasix 40 mg p.o. b.i.d. 7. MiraLAX 17 g p.o. daily. 8. [place] 5, one each p.o. q.6 hours p.r.n. 9. Potassium chloride 20 mEq p.o. daily. 10. Spiriva 2.5 mcg inhaler daily. 11. Thera-M Plus 1 each p.o. daily. 12. Albuterol sulfate inhaler 2 puffs inhaled q.6 hours p.r.n. FOLLOWUP: Ms. Smith is being discharged home with home health, home O2. She will need to follow up with Dr. Frias and take all medications as prescribed. She has fully been treated for her aspiration pneumonia. She can return to the ED or call 911 for any worsening of symptoms. Dictated by MADISON Paris for Jamie Nixon MD cc: MD Diomedes Gil DO Omar J. Sosa-Chirinos, MD
== END 2019-02-22 14:15 | disposition home health service (06) | DRG 208 ==
LOC: ED 18:19 → ICU 22:33 → SUATTDRO 22:33 → 4N 02-18 08:45
PROVIDERS: ATTEND Internal Medicine
CPT/HCPCS: 31500; 51702; 70450; 71010; 71045; 71250; 74176; 80048; 80053; 80101; 80301; 80307; 80320; 80324; 80345; 80346; 80353; 80358; 80361; 80365; 81001; 82055; 82550; 82553; 82805; 82948; 83036; 83605; 83735; 83880; 83992; 84100; 84134; 84484; 85025; 85027; 85610; 85730; 87040; 87070; 87205; 87449; 87899; 89220; 93005; 94003; 94640; 94660; 94761; 96365; 96366; 96368; 97110; 97116; 97162; 97165; 97530; 99285; A9270; G0431; G0434; G0479; G0480; G6040; J1644; J1940; J2020; J2270; J2543; J2765; J2930; J3370; J3480; J7030; J7040; S0028; XXXXX